=== PATIENT | female | born 1945 | race Caucasian/White ===

== ENCOUNTER → 2018-02-06 14:19 | Outpatient (CLI) | payer OTHER, SELFPAY ==
[2018-02-06 16:31] LABS: Alanine Aminotransferase 47 IU/L (9-52); Albumin 4.4 g/dL (3.5-5.0); Albumin Globulin Ratio 1.6 (1.0-2.8); Alkaline Phosphatase 82 U/L (38-126); Aspartate Aminotransferase 46 IU/L (14-36); BUN Creatinine Ratio 14.3 (6-22); Bilirubin Total 0.4 mg/dL (0.2-1.3); Blood Urea Nitrogen 10 mg/dL (7-17); Calcium 10.3 mg/dL (8.4-10.2); Carbon Dioxide 27 mmol/L (22-32); Chloride 94 mmol/L (98-107); Estimated Glomerular Filt Rate > 60.0 mL/min (>60); Globulin 2.7 g/dL (1.7-4.1); Glucose 81 mg/dL (80-110); HEMOLYSIS < 15 (0-50); Potassium 4.6 mmol/L (3.4-5.1); Sodium 133 mmol/L (137-145); Total Protein 7.1 g/dL (6.3-8.2)
== END ==
PROVIDERS: PCP Physician Assistant Medical; Visit Provider Physician Assistant Surgical
DX: Z01.818 Encounter for other preprocedural examination (principal)
CPT/HCPCS: 36415; 80053; 93005

== ENCOUNTER 2018-02-13 06:20 | Day surgery (SDC) | payer OTHER, SELFPAY ==
[2018-02-02 12:10] VITALS: BMI 21.2
[2018-02-13] VITALS (15 sets, daily range): BP systolic 90–144; BP diastolic 43–68; PULSE 53–83; RESP 15–20; TEMP 35.9–37.4; O2SAT 90–100; BMI 19.2
[2018-02-13] MEDS: LACTATED RINGERS 1,000 ML 42 ML IV ×2 (07:15→09:14)
--- NOTE | 2018-02-13 07:35 | PM.PREOP ---
Pre-operative Note Interval Note Pre-op Check: Yes History & Physical Reviewed by Physician and Yes Exam Performed Changes: No
[2018-02-13] MEDS: CLINDAMYCIN 900 MG/50 ML PIGGYBACK 50 MG IV (07:45)
[2018-02-13] MEDS: BUPIVACAINE LIPOSOME 266 MG/20 ML VIAL INJ (08:14)
[2018-02-13] MEDS: BUPIVACAINE 0.25% W/ EPI VIAL 50 ML INJ (08:15)
[2018-02-13] MEDS: VANCOMYCIN 1,000 MG VIAL 1000 MG TOP (08:15)
[2018-02-13] MEDS: THROMBIN (BOVINE) 5,000 UNIT VIAL 5000 UNIT TOP (08:15)
--- NOTE | 2018-02-13 08:23 | SUR.OPER ---
Prone on spine table, head in foam head support, padded chest and pelvic supports, gel pad at knees, lower legs supported by pillows; nipples, genitalia and toes free of pressure, arms secured on foam padded arm boards at <90 degrees abduction. Tape over blanket at thigh secured to table.
[2018-02-13] MEDS: SODIUM CHLORIDE 0.9% IRR (08:49)
[2018-02-13] MEDS: GENTAMICIN 160 MG IRR (08:49)
--- NOTE | 2018-02-13 08:53 | DI.RAD.S_ITS ---
PROCEDURE: XR LUMBAR SPINE 1V INDICATIONS: L5-S1 LAMINECTOMY TECHNIQUE: Single views of the lumbar spine were acquired. COMPARISON: [facility], , L-SPINE 2-3 VIEWS, 06/27/2017, 14:30. FINDINGS: Single spot fluoroscopic intraoperative image demonstrates lower lumbar spine posterior fixation with interbody cage grafts at L3-L4 L4-L5 and L5-S1. There is a surgical instrument projecting in the posterior paraspinal soft tissues with the tip seen at the L5-S1 level. Dictated by: Joshua Boggs M.D. on 02/13/2018 at 9:45 Approved by: Joshua Boggs M.D. on 02/13/2018 at 9:51
--- NOTE | 2018-02-13 10:14 | P.OP_ITS ---
Operative Date/Time/Diagnoses Date of procedure: 02/13/18 Time of procedure: 10:07 Pre-op diagnosis: Recurrent lumbar stenosis with radiculopathy History of lumbar fusion Post-op diagnosis: same Procedure & Clinicians Procedure: Revision right-sided L5-S1 diskectomy Use of microscope Removal of pedicle screw Same procedure as scheduled: No (We needed to remove the right L5 pedicle screw for full decompression.) Indications: A 72-year-old female with intractable right leg radiculopathy from stenosis. She had failed conservative management requested operative intervention. Risks and benefits of surgery discussed and appropriate consent obtained. Surgeon: Bari Webber Foxing Cutting Machine Operator: Kellie Rendon Anesthesia Type: General Operative Notes Findings: None Closure Type: primary Specimen(s): none sent Applied: catheter Estimated Blood Loss (mL): 30 Procedure in detail: Patient was brought to the operating room and intubated on the table. They were rolled over on the well-padded prone position on the Patrice table. A time-out was performed. Preoperative antibiotics were given. The back was prepped and draped in standard sterile fashion. Using fluoroscopy for localization, we used her previous right-sided incision and extended it to 5 cm in length.. We used Bovie to dissect through the scar down to the lumbodorsal fascia. We were able find the spinous process and start to dissect down a little bit. We had to do a careful revision exposure with care not to go into the canal. Had to scrape the scar tissue off. Finally were able to go out and find the L5 screw as our landmark. From there we continued our dissection exposing the remainder of the L5 lamina and part of the S1. We exposed both facets at L5-S1 and L4-5. At this point it was clear that the screw and tierney would be blocking some of her decompression. We exposed the tierney between the L4 and L5 screw and used a metal cutting bur to cut through it. We then used a pair of pliers to helicopter the L5 pedicle screw out. At this point we had good exposure. We then brought in the microscope. A revision right-sided laminectomy was performed at L5-S1 with a bur, curettes, and Kerrisons.. We carefully depressed the dura and reached across the midline to decompress the opposite side. We removed most of the facet at L5-S1 until the central canal was opened and we were down flush with the S1 pedicle. We did the same at L4-5 until we were flush with L5 pedicle. We cleared medially until we were well past the midline. We went up underneath part of S1. At the end of this everything was widely decompressed. We then started working out towards the neural foramen. We removed more the L5-S1 facet until we could trace the exiting nerve root completely out well past the pedicle laterally. We also undermined more at L4-5 to completely unearth the foramen. The neural foramen were cleared out. At the end, we could reach with the ball probe cephalad and caudally across the midline and to the foramen and everything was opened. The wound was copiously irrigated. The deep fascia was closed in layers. A drain was placed. Vancomycin powder was placed in the wound. The superficial and the skin were closed. Sterile dressing was placed. Patient was rolled over extubated brought to recovery room with no complications. Complications: none Condition: stable Disposition: PACU Plan for aftercare: Inpatient. Anticipate 1-2 days hospitalization time. Up with physical therapy.
[2018-02-13] MEDS: HYDROMORPHONE 2 MG INJ 0.5 MG IV ×2 (10:44→10:56)
[2018-02-13] MEDS: HYDROMORPHONE 2 MG TABLET PO (11:05)
[2018-02-13] MEDS: LACTATED RINGERS 1,000 ML 125 ML IV ×2 (12:14→21:16)
--- NOTE | 2018-02-13 12:38 | PC.NURSE ---
11:15 Post op patient arrived to room, oriented to room and call light. VSS. States pain is a 3-4 to right side leg, which she states as basically at her goal/chronic level. Dressing to back is CDI with hemovac in place, compressed and intact. Moving all extremities with good pulses. Soliz in place draining clear yellow urine. Call light within reach. Continue to monitor.
[2018-02-13] MEDS: INFLUENZA VACCINE 0.5 ML SYRINGE IM (13:21)
[2018-02-13] MEDS: KETOROLAC 30 MG/ML VIAL IV ×2 (14:15→21:05)
[2018-02-13] MEDS: HYDROMORPHONE 2 MG TABLET 4 MG PO ×3 (14:19→21:04)
--- NOTE | 2018-02-13 15:32 | PT.IIE ---
Current Diagnoses Spinal stenosis, lumbar region with neurogenic claudication (02/13/18) Strain of muscle, fascia and tendon of lower back, subsequent encounter (02/13/18) Arthrodesis status (02/13/18) Surgery Performed Operation Date: 02/13/18 07:45 Actual Procedures p Revision right L5-S1 Laminotomy with hardware removal - Bari Webber MD Surgical History (Last Reviewed 02/13/18 @ 18:36 by Nena Madrigal) S/P lumbar spinal fusion (Acute) History of tonsillectomy Status post appendectomy Status post surgery (07/01/15) Medical History (Last Updated 02/02/18 @ 12:16 by Merary Jamison RN) History of hysteroscopy (Acute) Hypertension (Acute) Lumbar stenosis with neurogenic claudication (Acute) Neutrophilia (Acute ~2009) Postmenopausal (Acute) Strain of lumbar region (Acute) Physical Therapy Inpatient Evaluation/Re-Eval M1 PT/OT-IP Prior Functional Status Start: 02/13/18 16:17 Freq: NEEDED Status: Active Protocol: Document 02/13/18 15:32 (Rec: 02/13/18 17:14 [id number]) Medical Review Prior Functional Status Medical History Reviewed Yes Diet/Fluid Consistency Regular Communication No deficits noted Mobility and Gait Pt independent with single- point cane for outside ambulation; occasional use indoors. Activities of Daily Living and IADL's States independent for all Social History Household Members none Living Arrangements House Number of Floors (Floors) One Floor Number of Stairs To Enter/Railing? 6 steps, B wide rails. Pt usually uses R side rail. Home Environment Standard Height Toilet Tub/Shower Home Equipment Four Wheel Walker Straight Cane Shower Seat without Backrest Grab Bars In Shower Employment Status Unknown Additional Social History Comment 25 year old grandson will be staying with her initially post op. Pt states having many friends and family availiable 03/12 to assist. M2 PT-IP Current Condition Start: 02/13/18 16:17 Freq: NEEDED Status: Active Protocol: Document 02/13/18 15:32 (Rec: 02/13/18 17:14 [id number]) Physical Therapy Current Condition Current Condition Evaluation Date 02/13/18 Treatment Diagnosis s/p Lumbar laminotomy/ discectomy; difficulty in walking Onset Date 02/13/18 Precautions Lumbar Precautions Log Roll No Twisting Limit Bending Lifting Restriction of 10 lbs Gait Belt above Incisional Area M3 PT-IP Subjective Start: 02/13/18 16:17 Freq: NEEDED Status: Active Protocol: Document 02/13/18 15:32 (Rec: 02/13/18 17:14 [id number]) Subjective Physical Therapy Visit Type Type Initial Evaluation Visit Start Time 15:32 Visit Stop Time 16:11 Total Visit Minutes 41 Number of RETURNING OFFICER Visits 0 Physical Therapy Visit Comments Patient Comments Pt states feeling very tired but is agreeable to PT today including log rolling, sitting and possible ambulation. Therapy Pain Assessment Pain When Pain Assessed At Rest Pain Present Pain Present Pain Reported Location Right Leg Intensity 5 Scale Used Numeric (1 - 10) back Intensity 5 Scale Used Numeric (1 - 10) Pain Management Techniques Timing of Activity with Medications M4 PT-IP Mobility and Gait Start: 02/13/18 16:17 Freq: NEEDED Status: Active Protocol: Document 02/13/18 15:32 (Rec: 02/13/18 17:14 [id number]) PT-Bed Mobility Assessment Rolling Type of Rolling Log Rolling Roll to Right Level of Assist Standby Assistance Contact Guard Assistance Supine to Sit Supine to Sit Contact Guard Assistance Sit to Supine Sit to Supine Contact Guard Assistance Scooting Scooting to Edge of Bed Standby Assistance Scooting Up and Down in Bed Standby Assistance PT-Transfer Assessment Sit to and From Stand Sit to and from Stand Contact Guard Assistance Minimal Assistance 1 Person Assistance Use of Upper Extremities Equipment Transfer Assistive Device Gait Belt Front Wheeled Walker Orthotic/Prosthetic Devices or Brace: No Comments Mobility Comments Verbal and tactile cues for hand placement into bed on ascent/descent from bed to FWW . A little dizzy with standing but resolves within seconds. Pt tolerated ~ 5 min of standing using FWW for support without further c/o dizziness. Gait Assessment Gait Gait Assistance Required: Contact Guard Assist Distance (Feet) 20 Able to Maintain Weight Bearing Status Yes During Gait Assistive Devices Assistive Device Gait Belt Front Wheeled Walker Orthotic/Prosthetic Devices or Brace: No Gait Deviations General Gait Pattern Decreased Stride Length Decreased Feet Clearance Flexed Trunk Wide Based Gait Factors Limiting Gait Function Factors Limiting Gait Function Decreased Activity Tolerance Decreased Sensation Decreased Strength Limited Range of Motion Pain Poor Balance Poor Safety Awareness PT-Balance Assessment Sitting Balance and Reactions Static Sitting Balance Ability Good Dynamic Sitting Balance Ability Good Standing Balance and Reactions Static Standing Balance Ability Fair Dynamic Standing Balance Ability Fair Device Used FWW M5 PT-IP Objective Assessments Start: 02/13/18 16:17 Freq: NEEDED Status: Active Protocol: Document 02/13/18 15:32 (Rec: 02/13/18 17:18 [id number]) Orientation Orientation/Cognition Level of Alertness Alert Orientation Name Birthday Situation Language Function Ability No Deficits Noted Safety Awareness Understands Safety Issues Memory Description No Deficits Noted Strength Lower Extremity Strength Assessment Right Impaired Hip R 4/5; L 5/5 Knee R 4/5; L 5/5 Ankle R 3+/5; L 5/5 Comments Strength Comments Pt has slight buckling of R LE with ambulation but is able to catch herself. Sensation Assessment Sensation Gross Sensation Right LE Impaired Sensation Description Numbness Comments Sensation Comments States R first 3 toes feeling numb. Muscle Tone Muscle Tone WNL Yes M6 PT-IP Treatment Start: 02/13/18 16:17 Freq: NEEDED Status: Active Protocol: Document 02/13/18 15:32 (Rec: 02/13/18 17:14 [id number]) Physical Therapy Treatment Exercises Exercises Ankle Pumps Education Education Provided Precautions Post-Op Packet Safety M7 PT-IP Assessment and Plan Start: 02/13/18 16:17 Freq: NEEDED Status: Active Protocol: Document 02/13/18 15:32 (Rec: 02/13/18 17:14 [id number]) PT Summary Assessment and Plan Potential Rehabilitation Potential Good Status of Condition at Evaluation Stable Summary Impairments Pain ROM Strength Balance Transfers Gait Activity Tolerance Progress Towards Goals Progressing Toward Goals Assessment Summary Pt was able to ambulate 20ft in room today with CGA and no LOB. Tolerated session well evidenced by stable vital signs post ambulation and no report of increased dizziness. Pt needs to demonstrate safe transfers in/out of chair and up/down 6 steps prior to d/c. Afterwhich we can recommend discharge to home with 24/ available assist and OP PT for skilled PT to gain functional strength and return patient to previous functional status. Goals Bed Mobility Goal Independent Transfer Goal Independent Standby Assistance Gait Goal Independent Standby Assistance Gait Distance 200 ft Other Goals Short term goal: During afternoon session on 02/14/18 pt will demonstrate safe ambulation distance of 200ft with SBA, FWW and no LOB to demonstrate safety for needed home ambulation. terminologist goal: Prior to discharge, pt will demonstrate ascent/descent of 6 stairs using 1 rail for support and CGA to demonstrate safety needed for 6 steps to enter home. Days to Meet Goals 2 Frequency of Treatment Frequency Of Treatment Twice a Day Treatment Plan Physical Therapy Treatment Plan Bed Mobility Training Transfer Training Gait Training Therapeutic Exercise Balance Retraining Hot or Cold Pack Other Recommendations and Next Treatment Continue with gait. Begin Focus stair training. Recommendations To Nursing Amount of Assist Needed 1 Person Assist Discharge Recommendations PT Discharge Recommendations Home with 24/ Assist Equipment Needed for Home Before FWW (patient states she knows Discharge where to borrow one)
[2018-02-13] MEDS: CLINDAMYCIN 600 MG/50 ML PIGGYBACK 50 MG IV ×2 (15:53→23:46)
--- NOTE | 2018-02-13 15:55 | PM.PNPO.1 ---
Subjective Date Patient Seen: 02/13/18 Time Patient Seen: 15:55 Interval history: back pain, some R leg pain still but different Exam Vital Signs (past 8 hours): - 02/13/18 10:25 02/13/18 10:30 02/13/18 10:35 Temperature 99.3 F Pulse Rate 83 83 78 Respiratory Rate 15 15 16 Blood Pressure 121/58 L 111/54 L 90/43 L Pulse Oximetry 100 99 97 02/13/18 10:49 02/13/18 11:00 02/13/18 11:15 Temperature 97.6 F 96.7 F L Pulse Rate 75 72 71 Respiratory Rate 15 16 16 Blood Pressure 113/57 L 100/48 L 106/54 L Pulse Oximetry 96 95 97 02/13/18 11:45 02/13/18 12:15 02/13/18 13:15 Temperature 97.2 F L 97.7 F 97.5 F L Pulse Rate 67 61 53 L Respiratory Rate 16 16 16 Blood Pressure 102/52 L 95/44 L 104/64 Pulse Oximetry 98 98 91 02/13/18 14:15 Temperature 97.5 F L Pulse Rate 56 L Respiratory Rate 16 Blood Pressure 129/59 L Pulse Oximetry 90 L Oxygen Delivery Method Nasal Cannula Oxygen Flow Rate 2 Const Orientation: alert and oriented x3 Back/Spine/Pelvis Other: 5/5 motor BLE except unchanged 4/5 R AT/EHL Assessment & Plan Post-op Postoperative Procedures Operation Date: 02/13/18 07:45 Actual Procedures Side Surgeon p Revision right L5-S1 Laminotomy with hardware removal Bari Webber MD stable. up with PT. anticipate dc tomorrow
[2018-02-13] MEDS: HYDROMORPHONE 1 MG INJ 0.5 MG IV ×2 (16:08→21:05)
[2018-02-13] MEDS: DOCUSATE 100 MG CAPSULE PO (21:04)
[2018-02-13] MEDS: SENNOSIDES 8.6 MG TABLET 17.2 MG PO (21:04)
[2018-02-13] MEDS: hydrOXYzine pamoate 25 MG CAPSULE PO (21:05)
--- NOTE | 2018-02-13 23:59 | PC.NURSE ---
Addendum entered by Eduarda Gee R.N. 02/14/18 05:57: Medicated with Dilaudid for 5/10 pain per patient request and ice pack provided for comfort. Original Note: Addendum entered by Eduarda Gee R.N. 02/14/18 03:51: States pain is slightly better at 6/10; medicated with Vistaril Original Note: Addendum entered by Eduarda Gee R.N. 02/14/18 02:37: Complains of 7/10 back pain radiating into right thigh and knee; medicated with Dilaudid. Original Note: Patient is alert and oriented. Breath sounds CTA with RA sat of 97%. HRR but bradycardic in 50's. Denies nausea. BT present and is passing flatus. Indwelling catheter is patent with clear yellow urine in bag. Is able to turn self. Dressing to back is CDI. Hemovac is intact and compressed. Has chronic weakness in right leg and tingling sensation in plantar surface/toes of right foot but unchanged since surgery; other CMS is intact. Wearing bilateral SCD's. Fall risk score is high so bed alarm activated. Currently states pain is 4/10 but tolerable and declines pain medication or ice pack.
[2018-02-14] MEDS: HYDROMORPHONE 2 MG TABLET 4 MG PO ×4 (02:35→12:26)
[2018-02-14] MEDS: hydrOXYzine pamoate 25 MG CAPSULE PO ×2 (03:49→12:26)
[2018-02-14 03:59] VITALS: BP 134/66; PULSE 58; RESP 20; TEMP 36.7; O2SAT 94
[2018-02-14 05:29] LABS: Hematocrit 29.2 % (36-46); Hemoglobin 10.1 g/dL (12.0-16.0)
[2018-02-14] MEDS: PANTOPRAZOLE 20 MG TABLET PO (05:47)
[2018-02-14 08:00] VITALS: BP 138/57; PULSE 59; RESP 16; TEMP 36.8; O2SAT 95
[2018-02-14] MEDS: DOCUSATE 100 MG CAPSULE PO (09:18)
[2018-02-14] MEDS: METOPROLOL ER 50 MG TABLET 100 MG PO (09:18)
[2018-02-14] MEDS: LISINOPRIL 20 MG TABLET 40 MG PO (09:18)
[2018-02-14] MEDS: CITALOPRAM 20 MG TABLET PO (09:19)
[2018-02-14] MEDS: SODIUM CHLORIDE 0.9% FLUSH 10 ML IV (09:22)
--- NOTE | 2018-02-14 09:43 | PT.IPTN ---
Current Diagnoses Spinal stenosis, lumbar region with neurogenic claudication (02/13/18) Strain of muscle, fascia and tendon of lower back, subsequent encounter (02/13/18) Arthrodesis status (02/13/18) Surgery Performed Operation Date: 02/13/18 07:45 Actual Procedures p Revision right L5-S1 Laminotomy with hardware removal - Bari Webber MD Physical Therapy Treatment Note M2 PT-IP Current Condition Start: 02/13/18 16:17 Freq: NEEDED Status: Active Protocol: Document 02/14/18 09:43 [facility] (Rec: 02/14/18 09:53 [facility] [id number]) Physical Therapy Current Condition Current Condition Evaluation Date 02/13/18 Treatment Diagnosis s/p Lumbar laminotomy/ discectomy; difficulty in walking Onset Date 02/13/18 Precautions Lumbar Precautions Log Roll No Twisting Limit Bending Lifting Restriction of 10 lbs Gait Belt above Incisional Area M3 PT-IP Subjective Start: 02/13/18 16:17 Freq: NEEDED Status: Active Protocol: Document 02/14/18 09:43 RCC (Rec: 02/14/18 09:53 [facility] [email or web address]) Subjective Physical Therapy Visit Type Type Treatment Note Visit Start Time 09:15 Visit Stop Time 09:43 Total Visit Minutes 28 Number of PRINTED CIRCUIT BOARD PCB DRAFTSMAN Visits 0 Physical Therapy Visit Comments Patient Comments pt wants to d/c today Therapy Pain Assessment Location back Intensity 5 Scale Used Numeric (1 - 10) M4 PT-IP Mobility and Gait Start: 02/13/18 16:17 Freq: NEEDED Status: Active Protocol: Document 02/14/18 09:43 [facility] (Rec: 02/14/18 09:53 [facility] [id number]) PT-Bed Mobility Assessment Rolling Type of Rolling Log Rolling Level of Assist Independent Supine to Sit Supine to Sit Independent Sit to Supine Sit to Supine Independent Scooting Scooting to Edge of Bed Independent PT-Transfer Assessment Sit to and From Stand Sit to and from Stand Independent Equipment Transfer Assistive Device Gait Belt Front Wheeled Walker Transfers Transfer Destination Bed Transfer Technique Stand Step Pivot Transfer Ability Level of Assist Standby Assistance Gait Assessment Gait Gait Assistance Required: Standby Assistance Distance (Feet) 200 Assistive Devices Assistive Device Gait Belt Front Wheeled Walker Gait Deviations General Gait Pattern Decreased Feet Clearance Factors Limiting Gait Function Factors Limiting Gait Function Decreased Activity Tolerance Decreased Strength Pain Stair Climbing Assessment Evaluation Level of Assist On Stairs Standby Assistance Devices Stair Climbing Assistive Devices Right Railing Technique/Endurance Stair Climbing Direction Ascend and Descend Stair Climbing Technique Step to Step Number of Steps Climbed 6 Query Text: PT-Balance Assessment Sitting Balance and Reactions Static Sitting Balance Ability Good Dynamic Sitting Balance Ability Good Standing Balance and Reactions Static Standing Balance Ability Good Dynamic Standing Balance Ability Good Device Used FWW M5 PT-IP Objective Assessments Start: 02/13/18 16:17 Freq: NEEDED Status: Active Protocol: Document 02/13/18 15:32 (Rec: 02/13/18 17:18 [id number]) Orientation Orientation/Cognition Level of Alertness Alert Orientation Name Birthday Situation Language Function Ability No Deficits Noted Safety Awareness Understands Safety Issues Memory Description No Deficits Noted Strength Lower Extremity Strength Assessment Right Impaired Hip R 4/5; L 5/5 Knee R 4/5; L 5/5 Ankle R 3+/5; L 5/5 Comments Strength Comments Pt has slight buckling of R LE with ambulation but is able to catch herself. Sensation Assessment Sensation Gross Sensation Right LE Impaired Sensation Description Numbness Comments Sensation Comments States R first 3 toes feeling numb. Muscle Tone Muscle Tone WNL Yes M6 PT-IP Treatment Start: 02/13/18 16:17 Freq: NEEDED Status: Active Protocol: Document 02/13/18 15:32 (Rec: 02/13/18 17:14 [id number]) Physical Therapy Treatment Exercises Exercises Ankle Pumps Education Education Provided Precautions Post-Op Packet Safety M7 PT-IP Assessment and Plan Start: 02/13/18 16:17 Freq: NEEDED Status: Active Protocol: Document 02/14/18 09:43 RCC (Rec: 02/14/18 09:53 [facility] [email or web address]) PT Summary Assessment and Plan Summary Progress Towards Goals Safe For Discharge Assessment Summary POD #1. Pt able to manage stairs, gait, and bed mobility without cuing and safely. Pt tolerated gait well, has access to a FWW from her mother upon return home. Pt is cleared to d/c when medically stable, demonstrates good safety awareness of log roll and precautions. All goals achieved. Goals Bed Mobility Goal Independent Transfer Goal Independent Standby Assistance Gait Goal Independent Standby Assistance Gait Distance 200 ft Other Goals Short term goal: During afternoon session on 02/14/18 pt will demonstrate safe ambulation distance of 200ft with SBA, FWW and no LOB to demonstrate safety for needed home ambulation. local intermodal truck driver goal: Prior to discharge, pt will demonstrate ascent/descent of 6 stairs using 1 rail for support and CGA to demonstrate safety needed for 6 steps to enter home. Days to Meet Goals 2 Frequency of Treatment Frequency Of Treatment Discharge Recommendations To Nursing Amount of Assist Needed 1 Person Assist Discharge Recommendations PT Discharge Recommendations Home with Assistance Equipment Needed for Home Before has access to a FWW @ home Discharge
--- NOTE | 2018-02-14 10:32 | P.DS_ITS ---
History of Present Illness Date Patient Seen: 02/14/18 Time Patient Seen: 10:31 Chief complaint: [id number] REVISION L5-S1 LAMINECTOMY ON RIGHT Narrative: A 72-year-old female with intractable right leg radiculopathy from stenosis. She had failed conservative management requested operative intervention. Risks and benefits of surgery discussed and appropriate consent obtained. Discharge Providers Primary care physician: Zakiya Crooks PA-C Consults: 02/13/18 11:41 Consult to Occupational Therapy Evaluate & Treat Comment: Physician Instructions: Evaluate and treat Consult to Physical Therapy Evaluate & Treat Comment: Physician Instructions: Evaluate and Treat Discharge provider: Kellie Rendon PA-C Discharge Date: 02/14/18 Summary Discharge Diagnosis: s/p revision discectomy Hospital Course: Lexis was admitted for diskectomy with Dr. shafer, and she consented to procedure. On postop day 1. She is feeling well and wanted to go home. Drain and Soliz catheter removed prior to discharge. She was mobilizing with physical therapy in the calix. She knows her precautions of no excessive bending, lifting, or twisting. Calves were soft, compressible, nontender bilaterally. Pain was well controlled with Dilaudid and Vistaril. Status at Discharge Functional status at discharge: uses cane/walker Exam Vital Signs (past 8 hours): - 02/14/18 03:59 Temperature 98.0 F Pulse Rate 58 L Respiratory Rate 20 Blood Pressure 134/66 Pulse Oximetry 94 Oxygen Delivery Method Room Air Oxygen Flow Rate 0 Narrative Exam Narrative: Patient lying in bed in no acute distress. She is alert oriented x3. Dressing on back changed cover site prior to discharge. Drain and catheter removed prior to discharge. Calves are soft, compressible, nontender bilaterally. Sensation intact light touch throughout bilateral lower extremities. Pulses are symmetrical. Her pain is well controlled with Dilaudid and Vistaril. Denies chest pain or shortness of breath. Objective Labs Result Diagrams: 02/14/18 05:00 Labs: Laboratory Results - last 24 hr 02/14/18 05:00 Hgb 10.1 L Hct 29.2 L Discharge Plan Discharge Plan Patient Disposition: Home Discharge comment: DC home today with coversite dressing Discharge Med Rec/Prescriptions Prescriptions: New hydromorphone 2 mg Tablet See Label Instructions .ROUTE .COMPLEX PRN (Reason: Pain, Severe (7-10)) Qty : 60 RF: 0 hydroxyzine pamoate 25 mg Capsule 25 mg PO Q4HR PRN (Reason: spasms) Qty: 30 RF: 0 Continue omeprazole 20 MG capsule,delayed release(DR/EC) 20 mg PO QDAY Qty: 0 RF: 0 lisinopril 40 mg Tablet 40 mg PO DAILY RF: 0 metoprolol succinate 100 mg Tablet Extended Release 24 Hr 100 mg PO DAILY RF: 0 hydromorphone [Dilaudid] 2 MG tablet 2 - 4 mg PO Q3HP PRN (Reason: Pain (Scale Score 4-6)) RF: 0 citalopram 20 mg Tablet 20 mg PO DAILY RF: 0 Follow up/Referrals: Bari Shafer MD [Physician] - (Follow up in 10-14 days ) Discharge Orders: Discharge (Order); Ordered 02/14/18 Ordered By: Kellie Rendon Provider Discharge Instructions Diet: Diet as Tolerated Activity: No excessive bending, lifting, or twisting. Cold/Heat Therapy: as needed Skin/Wound/Dressing Care Report to your healthcare provider any signs of infection, such as:: chills, fever and increased pain Dressing: Coversite dressing Visit Report/Discharge Packet Stand Alone Forms: Surgery Discharge Discharge Data Primary Care Provider: Zakiya Crooks Attending Provider: Bari Shafer
--- NOTE | 2018-02-14 10:40 | OT.IP.TRT ---
Current Diagnoses Spinal stenosis, lumbar region with neurogenic claudication (02/13/18) Strain of muscle, fascia and tendon of lower back, subsequent encounter (02/13/18) Arthrodesis status (02/13/18) Surgery Performed Operation Date: 02/13/18 07:45 Actual Procedures p Revision right L5-S1 Laminotomy with hardware removal - Bari Webber MD Occupational Therapy Treatment Note M3 OT- IP Subjective and Pain Start: 02/14/18 10:37 Freq: Status: Active Protocol: Document 02/14/18 10:37 [facility] (Rec: 02/14/18 10:40 [facility] [id number]) OT- Subjective Occupational Therapy Visit Type Type Administrative Note Notes Pt states has had prior back surgery and here for revision, has good understanding for all OT needs, AED, and to have good support at home. Therefore pt states not needing OT eval.
--- NOTE | 2018-02-14 16:54 | PC.NURSE ---
Discharge: Pt feels ready for d/c home. Has been seen by PT and received final instructions. Hemovac d/c intact and dressing applied. Dressing to lower back changed to a cover site and pt was given wound care instructions. Incision is sutured and and intact, minimal redness, sm bruise present. Has a tiny spot mid incision which has few (3) drops of bloody fluid. Soliz out and has voided x1. Pt's mother has already received rx for home pain meds and had them filled. Priority load pass given. Reviewed d/c instruction sheets for lami and constipation. Questions answered. Pt d/c home via auto. She expressed no concerns at time of discharge.
== END 2018-02-14 13:10 | disposition home or self-care (01) ==
LOC: OR 06:22 → AC 11:34
PROVIDERS: Family Provider Physician Assistant Medical; PCP Physician Assistant Medical; Visit Provider Orthopaedic Surgery
PROC: (CPT 63047; principal; 2018-02-13 07:45)
DX: M48.062 Spinal stenosis, lumbar region with neurogenic claudication (principal); M54.17 Radiculopathy, lumbosacral region; S39.012D Strain of muscle, fascia and tendon of lower back, subsequent encounter; G89.4 Chronic pain syndrome; Z98.1 Arthrodesis status; Z23 Encounter for immunization
CPT/HCPCS: 63047; 63048; 20680; 36415; 72020; 76001; 85014; 85018; 90471; 90656; 97116; 97161; 97530; C9290; J1100; J1170; J1885; J2405; J2704; J3010; Q2038

== ENCOUNTER → 2018-08-08 09:44 | Outpatient (CLI) | payer OTHER, SELFPAY ==
--- NOTE | 2018-08-08 14:37 | DI.MRI.S_ITS ---
PROCEDURE: MR LUMBAR SPINE WO CON INDICATIONS: LUMBAGO WITH SCIATICA TECHNIQUE: Noncontrast sagittal T1 spin echo and T2 fast echo, sagittal STIR, axial T1 and T2 fast spin echo through the lumbar spine. In cases with scoliosis, additional coronal T2 fast spin echo may be performed. COMPARISON: [facility], , L-SPINE WITHOUT CONTRAST, 03/28/2011, 9:52. FINDINGS: Image quality: Excellent. Alignment and Curvature: There is mild to moderate dextroscoliosis of lumbar spine centered at L2 level. Patient is status post transpedicular fusion at L2-L5 levels. No spondylolisthesis. Bone Marrow: Susceptibility artifact from fusion hardware is seen. No gross marrow edema. No gross hardware loosening or failure. There is near complete bony union at L4-5 level and partial bone union at L2-3 and L3-4 levels. Spinal Cord: Conus medullaris terminates at the L1-2 level. Visualized cord demonstrates normal signal and size. Paraspinous Soft Tissues: No paravertebral masses. L1-L2: Bilateral facet arthrosis and diffuse disc bulge is seen. There is mild central canal stenosis, no significant neuroforaminal narrowing. L2-L3: Bilateral facet arthrosis is seen. There is no significant central canal stenosis. Mild to moderate left-sided neuroforaminal narrowing is noted. L3-L4: Bilateral facet arthrosis is seen with mild central canal stenosis and bilateral neuroforaminal narrowing. L4-L5: Bilateral facet arthrosis is seen with mild central canal stenosis. Moderate bilateral neuroforaminal narrowing is noted. L5-S1: Broad-based disc bulge and bilateral facet arthrosis is seen. No significant central canal stenosis. Moderate bilateral neuroforamina narrowing is seen.. IMPRESSION: #1. Prior transpedicular fusion at L2-L5 levels. No acute compression fracture or spondylolisthesis. No gross marrow edema. No gross hardware complication. #2. Mild to moderate dextroscoliosis of thoracolumbar spine centered at L2 level. #3. Bilateral facet arthrosis and degenerative disc bulge throughout lumbar spine with mild to moderate central canal stenosis and bilateral neuroforaminal narrowing as described above. Dictated by: Rony Milian M.D. on 08/08/2018 at 15:36 Approved by: Rony Milian M.D. on 08/08/2018 at 15:41
== END ==
PROVIDERS: Family Provider Orthopaedic Surgery; PCP Physician Assistant Medical; Visit Provider Physician Assistant Medical
DX: M51.16 Intervertebral disc disorders with radiculopathy, lumbar region (principal); M51.17 Intervertebral disc disorders with radiculopathy, lumbosacral region; M48.061 Spinal stenosis, lumbar region without neurogenic claudication; M48.07 Spinal stenosis, lumbosacral region; M47.26 Other spondylosis with radiculopathy, lumbar region; M47.27 Other spondylosis with radiculopathy, lumbosacral region; M41.85 Other forms of scoliosis, thoracolumbar region; Z98.1 Arthrodesis status
CPT/HCPCS: 72148

== ENCOUNTER → 2018-09-02 10:11 | Outpatient (CLI) | payer OTHER, SELFPAY ==
--- NOTE | 2018-09-02 | DI.CT.S_ITS ---
PROCEDURE: CT LUMBAR SPINE WO CON INDICATIONS: Right leg radicular pain post lumbar surgery February 2018 TECHNIQUE: Noncontrast 3 mm thick sections acquired from the T12 level to the sacrum. Sagittal and coronal reformats were constructed. For radiation dose reduction, the following was used: automated exposure control. COMPARISON: [facility], CR, XR LUMBAR SPINE 1V, 02/13/2018, 8:38. [facility], CR, L-SPINE 2-3 VIEWS, 06/27/2017, 14:30. [facility], MR, L-SPINE W&WO CONTRAST, 03/27/2017, 13:29. [facility], MR, MR LUMBAR SPINE WO CON, 08/08/2018, 9:58. [facility], CR, XR LUMBAR SPINE 2 OR 3 VIEWS, 08/08/2018, 14:17. FINDINGS: Image quality: Excellent. Bones: There is moderate to severe levoscoliosis with apex at L3. There is otherwise normal bony alignment. No acute vertebral body compression fractures. No suspicious lytic or blastic bony lesions. No pars defects. There are extensive postsurgical changes in lumbar spine with spinal fusion from L1-S1. The left L3 pedicular screw traverses through the L3 vertebral body anteriorly. There is lucency in the fusion screws of L5 and S1. T12-L1: Severe loss of disc height and vacuum phenomenon. There is posterior disc bulge disc osteophyte complex. The central canal is narrowed. No significant foraminal stenosis. No definitive nerve root impingement. L1-L2: Surgically fused with intravertebral disc prosthesis. No central canal stenosis. [id number] left foraminal stenosis. L2-L3: Surgically fused with intravertebral disc prosthesis. No central canal stenosis. [id number] foraminal stenosis bilaterally. L3-L4: Surgically fused with intravertebral disc prosthesis. No central canal stenosis. No foraminal stenosis. L4-L5: Surgically fused with intravertebral disc prosthesis. No central canal stenosis. No foraminal stenosis. L5-S1: Surgically fused with intravertebral disc prosthesis. No central canal stenosis. Mild bilateral foraminal stenosis. Soft tissues: No retroperitoneal masses or hematomas. Visualized aorta is normal in caliber. IMPRESSION: 1. Multilevel degenerative and postsurgical changes in lumbar spine as described. 2. The left L3 pedicular screw traverses through the anterior L3 vertebral body. 3. There is lucency in the fusion screws of L5-S1 concerning for loosening. 4. No central canal stenosis. 5. Multilevel foraminal stenosis as described. Dictated by: Keena Garcia M.D. on 09/02/2018 at 12:24 Approved by: Keena Garcia M.D. on 09/02/2018 at 18:12
--- NOTE | 2018-09-02 | DI.NM.S_ITS ---
PROCEDURE: NM BONE SPECT RADIOPHARMACEUTICAL: 20.5 mCi Tc-99m MDP IV. INDICATIONS: Strain of muscle, fascia and tendon of lower back TECHNIQUE: Delayed bone scintigrams were obtained of the region of interest 3-4 hours after intravenous administration of Tc-99m MDP. Additional tomographic (SPECT) imaging was performed and displayed in axial, coronal, and sagittal planes. COMPARISON: [facility], MR, MR LUMBAR SPINE WO CON, 08/08/2018, 9:58. [facility], CR, XR LUMBAR SPINE 2 OR 3 VIEWS, 08/08/2018, 14:17. [facility], CR, L-SPINE 2-3 VIEWS, 06/27/2017, 14:30. [facility], CR, L-SPINE 2-3 VIEWS, 12/03/2011, 16:16. [facility], CR, L-SPINE 2-3 VIEWS, 02/23/2009, 12:44. [facility], CT, CT LUMBAR SPINE WO CON, 09/02/2018, 10:21. FINDINGS: There is moderate levoscoliosis. There are foci of increased activity in lumbar spine, most pronounced at L1-L2 and L5-S1, correlating with severe degenerative disc disease and facet disease superimposed on postsurgical changes as seen on radiographs, CT and MRI. IMPRESSION: Increased uptake in lumbar spine correlates with other imaging findings of severe degenerative disc and facet disease superimposed on post surgical changes. Dictated by: Keena Garcia M.D. on 09/02/2018 at 15:51 Approved by: Keena Garcia M.D. on 09/02/2018 at 18:23
== END ==
PROVIDERS: Family Provider Orthopaedic Surgery; PCP Physician Assistant Medical; Visit Provider Orthopaedic Surgery
DX: S39.012D Strain of muscle, fascia and tendon of lower back, subsequent encounter (principal); M79.604 Pain in right leg; M51.15 Intervertebral disc disorders with radiculopathy, thoracolumbar region; M51.16 Intervertebral disc disorders with radiculopathy, lumbar region; M51.17 Intervertebral disc disorders with radiculopathy, lumbosacral region; M48.061 Spinal stenosis, lumbar region without neurogenic claudication; M48.07 Spinal stenosis, lumbosacral region; Z98.1 Arthrodesis status
CPT/HCPCS: 72131; 78320; A9503

== ENCOUNTER 2018-10-07 06:02 | Inpatient (IN) | payer OTHER, SELFPAY ==
[2018-09-24 08:44] VITALS: BMI 26.6
[2018-10-07] VITALS (22 sets, daily range): BP systolic 103–173; BP diastolic 45–74; PULSE 59–82; RESP 6–22; TEMP 36–36.8; O2SAT 92–99; BMI 28.3
--- NOTE | 2018-10-07 | DI.RAD.S_ITS ---
PROCEDURE: XR LUMBAR SPINE 2-3V INDICATIONS: L5-S1 TLIF TECHNIQUE: 2 views of the lumbar spine were acquired. COMPARISON: [facility], DIXIE, XR LUMBAR SPINE 1V, 02/13/2018, 8:38. [facility], DIXIE, L-SPINE 2-3 VIEWS, 06/27/2017, 14:30. FINDINGS: Bones: Previously present effusion device is seen along the lower cervical spine, with its inferior extent now at the L4 level. A previously present L4-L5 disc prosthesis can be seen. The left-sided upper fixation device has been removed. A new bilateral L5-S1 fixation device has been placed, with transverse screws and vertical fixation rods in expected position bilaterally. A previously present L5-S1 fixation device at the interbody disc region has not changed. Soft tissues: Overlying bowel gas pattern is normal. No suspicious soft tissue calcifications. IMPRESSION: Partial revision of a upper fixation device with removal of the left-sided component, placement of new bilateral L5-S1 fixation device dorsally. Interbody disc prosthesis and fixation screws/jaelyn appear stable over time. Dictated by: Fco Shanks M.D. on 10/07/2018 at 13:54 Approved by: Fco Shanks M.D. on 10/07/2018 at 13:57
[2018-10-07] MEDS: LACTATED RINGERS 1,000 ML 42 ML IV (07:15)
--- NOTE | 2018-10-07 07:25 | PM.PREOP ---
Pre-operative Note Interval Note History & Physical reviewed/Exam performed by Physician: Yes Changes to H&P: No
[2018-10-07] MEDS: CEFAZOLIN 2 GM/100 ML FROZ.PIGGY IV ×3 (07:43→23:46)
--- NOTE | 2018-10-07 07:43 | SUR.PREOP ---
blood sugar [address] wise
[2018-10-07] MEDS: BUPIVACAINE 0.25% W/ EPI 30 ML VIAL 60 ML INJ (08:48)
[2018-10-07] MEDS: BUPIVACAINE LIPOSOME 266 MG/20 ML VIAL INJ (08:49)
[2018-10-07] MEDS: SODIUM CHLORIDE 0.9% 1,000 ML, GENTAMICIN 80 MG IRR (08:49)
[2018-10-07] MEDS: VANCOMYCIN 1,000 MG VIAL 1000 MG TOP (08:53)
[2018-10-07] MEDS: fentaNYL 100 MCG/2 ML INJ 50 MCG IV (10:14)
--- NOTE | 2018-10-07 10:17 | P.OP_ITS ---
Operative Date/Time/Diagnoses Date of procedure: 10/07/18 Time of procedure: 10:09 Pre-op diagnosis: L5-S1 lumbar fusion pseudoarthrosis Post-op diagnosis: same Procedure & Clinicians Procedure: Removal of segmental lumbar instrumentation L5-S1 posterior fusion L5, S1 screws Iliac crest bone graft Same procedure as scheduled: Yes Indications: 73-year-old female with a history of a previous lumbar fusion. Her L5-S1 in stand-alone anterior fusion had never solidly fused it was felt that she would benefit from posterior instrumentation fusion. We would have to remove her old instrumentation to put the new ones in. Risks and benefits of surgery were discussed and appropriate consent obtained. Surgeon: Bari Webber Senior Contract Specialist: Kellie Rendon Anesthesia Type: General Operative Notes Findings: None Closure Type: primary Specimen(s): none sent Prosthetic devices, grafts, tissues, transplants, or devices: NuVasive 7.5mm MAS Reline screws Applied: catheter Estimated Blood Loss (mL): 15 Blood products transfused: none Procedure in detail: The patient is brought to the operating room and intubated on the stretcher. She was rolled over to the well-padded prone position on the Patrice table. The back was prepped and draped in standard sterile fashion. Time-out was performed. Preoperative antibiotics were given. We used fluoroscopy for localization and made a 8 cm incision over the left- sided pedicle screws. We used Bovie to come down to and split the fascia. We exposed the screws and cleared them off with Bovie. I realize that with our exposure to be able to cut the tierney above L4 we would only have to go 1 screw higher to remove them all and instead exposed all the way up to the L2 screw. The old Expedium screws were removed. We then expanded our muscle-splitting approach at L5 and S1 to expose the transverse process and ala as well as the facets. These were decorticated with a bur. We then percutaneously placed Jamshidi needles down the left pedicles of L5 and S1 using fluoroscopy and neural monitoring. As her initial screw had gone out through the anterior vertebral body I wanted to start more lateral and used a different screw hole at L5. We then tapped over the guidewires and then placed our MAS Reline screws. We then went over to the right-hand side. Again we used fluoroscopy for localization and made a 5 cm longitudinal incision. We used Bovie to come down to and split the fascia. We percutaneously placed Jamshidi needles down the right pedicles of L5 and S1. We then used our guidewires as landmarks and cleared out the posterolateral gutter with the sacral ala and the transverse process of L5. These were decorticated with a bur. Care was taken not to disturb the soft tissue over her previous revision laminotomies at this level. The guidewires were tapped and then the appropriate length screws were placed. The S1 screw on the right was actually not cannulated but we placed it with direct visualization and fluoroscopy. We then placed a tierney on the right-hand side and distracted across the screws and then locked down the tierney. This was an attempt to try to restore some of the collapse but she was still bent to the right-hand side above this with her previous L2-5 fusion. The tierney was then placed and locked down on the left-hand side as well. The wounds were irrigated. A small stab incision was made over the right PSIS and a Jamshidi needle was used to aspirate bone marrow. This was mixed with Osteocel bone graft and placed out the posterolateral gutters at L5-S1 for the posterolateral fusion. The fascia was closed. Vancomycin powder was placed in the wounds. The superficial and skin were closed. Local anesthetic was placed into the wounds. Sterile dressing was placed. She was then rolled over extubated and brought to the recovery room with no complications. Complications: none Condition: stable Disposition: PACU Plan for aftercare: Inpatient. Mobilize with therapy.
[2018-10-07] MEDS: HYDROMORPHONE 2 MG INJ 0.5 MG IV ×2 (10:18→10:31)
[2018-10-07] MEDS: HYDROMORPHONE 2 MG TABLET PO ×2 (10:35→12:12)
--- NOTE | 2018-10-07 10:55 | SUR.PHASEI ---
REPORT CALLED TO EBONY, STUDENT RN ON ACUTE CARE FLOOR. PT IN STABLE CONDITION, VSS. PT ALERT AND TALKING TO RN AND APPEARS COMFORTABLE AT THIS TIME. PT BEING TRANSFERRED TO ACUTE CARE FLOOR AT THIS TIME.
--- NOTE | 2018-10-07 11:13 | SUR.PHASEI ---
PT TRANSFERRED TO ACUTE CARE FLOOR IN STABLE CONDITION. PT ALERT AND TALKING TO RN DURING TRANSPORT. BEDSIDE REPORT GIVEN TO MARCUS GARCIA UPON ARRIVAL TO ROOM. NO CHANGE IN PT CONDITION UPON ARRIVAL TO PT ROOM. TRANSFERRED CARE OF PT TO MARCUS GARCIA AT THAT TIME.
[2018-10-07] MEDS: LACTATED RINGERS 1,000 ML 125 ML IV (11:25)
--- NOTE | 2018-10-07 11:41 | PC.NURSE ---
Admit done with Student RN, Pt is comfortable with LR infusing at 125cc/hr. PTs dressing to lower back is cdi s any drainage. She does complain of tingling and numbness in her r.extremity and present before surgery. She is visiting with her son and mother. Comfortable at this time.
--- NOTE | 2018-10-07 11:41 | PC.NURSE ---
Admitted to the floor at about 1110. vitals stable, continues to need o2 at 1L to keep o2 sats above 90% per md order. A+ox4 to baseline. Pain well controlled. Dsg to lower back incision c,d,i. Tingling to right leg radiating down to foot which was present prior to surgery. Soliz in place with clear yellow output. Lungs clear to auscultation and instructed on use of incentive spirometer. 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 Pleasant, calm and cooperative. Pedal pulses palpable bilaterally +2.
[2018-10-07] MEDS: HYDROMORPHONE 2 MG TABLET 4 MG PO ×4 (13:36→22:31)
--- NOTE | 2018-10-07 15:52 | PT.IIE ---
Current Diagnoses Spinal stenosis, lumbar region with neurogenic claudication (10/07/18) Pseudarthrosis after fusion or arthrodesis (10/07/18) Strain of muscle, fascia and tendon of lower back, subsequent encounter (10/07/18) Arthrodesis status (10/07/18) Surgery Performed Operation Date: 10/07/18 07:45 Actual Procedures s Removal,spinal instru,posterior non-segmental, AND REVISION INSTRUMENTED POST FUSION - Bari Webber MD p L5-S1 INSTRUMENTED FUSION WITH BONE GRAFT - Bari Webber MD Surgical History (Last Updated 09/24/18 @ 08:48 by Disha Membreno RN) Hx of lumbar discectomy (Acute 02/13/18) S/P lumbar spinal fusion (Acute) History of tonsillectomy Status post appendectomy Status post surgery (07/01/15) Medical History (Last Updated 09/30/18 @ 08:09 by Disha Membreno RN) Toe infection (Acute ~2017) History of hysteroscopy (Acute) Hypertension (Acute) Lumbar stenosis with neurogenic claudication (Acute) Neutrophilia (Acute ~2009) Postmenopausal (Acute) Strain of lumbar region (Acute) Physical Therapy Inpatient Evaluation/Re-Eval M1 PT/OT-IP Prior Functional Status Start: 10/07/18 17:40 Freq: NEEDED Status: Active Protocol: Document 10/07/18 15:52 AB (Rec: 10/07/18 17:50 AB [id number]) Medical Review Prior Functional Status Medical History Reviewed Yes Communication able to make needs known Mobility and Gait pt stated that she is iindependent with all mobilities and ambulation using SPC Social History Household Members none Living Arrangements House Number of Floors (Floors) One Floor Number of Stairs To Enter/Railing? 6 steps with bilateral wide rails and can hold on to one rail at a time Home Environment Standard Height Toilet Tub/Shower Home Equipment Four Wheel Walker Straight Cane Grab Bars In Shower Additional Social History Comment pt stated that her son will be staying with her to assist her at home Pt stated that she has access to a FWW if needed M2 PT-IP Current Condition Start: 10/07/18 17:40 Freq: NEEDED Status: Active Protocol: Document 10/07/18 15:52 AB (Rec: 10/07/18 17:50 AB [id number]) Physical Therapy Current Condition Current Condition Evaluation Date 10/07/18 Treatment Diagnosis s/p L5S1 fusion; difficulty in walking Onset Date 10/07/18 Precautions Lumbar Precautions Log Roll No Twisting Limit Bending Lifting Restriction of 10 lbs Gait Belt above Incisional Area M3 PT-IP Subjective Start: 10/07/18 17:40 Freq: NEEDED Status: Active Protocol: Document 10/07/18 15:52 AB (Rec: 10/07/18 17:50 AB [id number]) Subjective Physical Therapy Visit Type Type Initial Evaluation Visit Start Time 15:52 Visit Stop Time 16:30 Total Visit Minutes 38 Number of DELIVERY HELPER Visits 0 Physical Therapy Visit Comments Patient Comments pt agreeable to do PT Therapy Pain Assessment Pain When Pain Assessed At Rest Pain Present Pain Present Pain Reported Location back Intensity 7 Scale Used Numeric (1 - 10) Pain Management Techniques Apply Cold Re-positioning Timing of Activity with Medications M4 PT-IP Mobility and Gait Start: 10/07/18 17:40 Freq: NEEDED Status: Active Protocol: Document 10/07/18 15:52 AB (Rec: 10/07/18 17:50 AB [id number]) PT-Bed Mobility Assessment Rolling Type of Rolling Log Rolling Level of Assist Standby Assistance Supine to Sit Supine to Sit Standby Assistance PT-Transfer Assessment Sit to and From Stand Sit to and from Stand Contact Guard Assistance 1 Person Assistance Use of Upper Extremities Equipment Transfer Assistive Device Gait Belt Front Wheeled Walker Orthotic/Prosthetic Devices or Brace: No Transfers Transfer Destination Chair Transfer Technique Stand Step Pivot Transfer Ability Level of Assist Contact Guard Assistance Gait Assessment Gait Gait Assistance Required: Contact Guard Assist Distance (Feet) 50 Able to Maintain Weight Bearing Status Yes During Gait Assistive Devices Assistive Device Gait Belt Front Wheeled Walker Orthotic/Prosthetic Devices or Brace: No Gait Deviations General Gait Pattern Antalgic Decreased Stride Length Decreased Feet Clearance Factors Limiting Gait Function Factors Limiting Gait Function Decreased Activity Tolerance Decreased Sensation Decreased Strength Limited Range of Motion Pain Poor Balance Poor Safety Awareness PT-Balance Assessment Sitting Balance and Reactions Static Sitting Balance Ability Good Dynamic Sitting Balance Ability Good Standing Balance and Reactions Static Standing Balance Ability Fair Dynamic Standing Balance Ability Fair Device Used FWW M5 PT-IP Objective Assessments Start: 10/07/18 17:40 Freq: NEEDED Status: Active Protocol: Document 10/07/18 15:52 AB (Rec: 10/07/18 17:50 AB [id number]) Orientation Orientation/Cognition Level of Alertness Alert Orientation Name Age Birthday Month Date Year Day of Week Place Situation Language Function Ability No Deficits Noted Safety Awareness Understands Safety Issues Memory Description No Deficits Noted Gross Range of Motion Lower Extremity ROM Assessment Within Functional Limits Strength Lower Extremity Strength Assessment Bilaterally Impaired Hip 4-/5 Knee 4-/5 Coordination Assessment Gross Coordination Gross Coordination WNL Sensation Assessment Sensation Gross Sensation Right LE Impaired Sensation Description Numbness Comments Sensation Comments c/o chronic RLE decrease in sensation Muscle Tone Muscle Tone WNL Yes M6 PT-IP Treatment Start: 10/07/18 17:40 Freq: NEEDED Status: Active Protocol: Document 10/07/18 15:52 AB (Rec: 10/07/18 17:50 AB [id number]) Physical Therapy Treatment Education Education Provided Precautions Weight Bearing Status Post-Op Packet Safety M7 PT-IP Assessment and Plan Start: 10/07/18 17:40 Freq: NEEDED Status: Active Protocol: Document 10/07/18 15:52 AB (Rec: 10/07/18 17:50 AB [id number]) PT Summary Assessment and Plan Potential Rehabilitation Potential Good Status of Condition at Evaluation Stable Summary Impairments Pain ROM Strength Balance Coordination Sensation Bed Mobility Transfers Gait Activity Tolerance Assessment Summary pt requiring CGA with mobility and plans to go home with her son to assist her. stair climbing training will be conducted prior to d/c. Goals Bed Mobility Goal Independent Transfer Goal Independent Front Wheeled Walker Four Wheeled Walker Gait Goal Independent Front Wheel Walker Four Wheel Walker Gait Distance 200 Other Goals up/down 6 steps R rail ascending SBA Days to Meet Goals 5 Frequency of Treatment Frequency Of Treatment Twice a Day Treatment Plan Physical Therapy Treatment Plan Bed Mobility Training Transfer Training Gait Training Therapeutic Exercise Balance Retraining Post Op Education Discharge Planning Hot or Cold Pack Neuromuscular Re-ed Coordination Retraining Manual Therapy Other Recommendations and Next Treatment ambulation using 4WW if Focus appropriate, stair climbing training, caregiver training Recommendations To Nursing Amount of Assist Needed 1 Person Assist Discharge Recommendations PT Discharge Recommendations Home with Assistance Equipment Needed for Home Before FWW if not safe with 4WW Discharge
[2018-10-07] MEDS: hydrOXYzine pamoate 25 MG CAPSULE PO ×2 (19:08→22:31)
[2018-10-07] MEDS: SENNOSIDES 8.6 MG TABLET 17.2 MG PO (20:33)
[2018-10-07] MEDS: DOCUSATE 100 MG CAPSULE PO (20:33)
[2018-10-08] VITALS (7 sets, daily range): BP systolic 132–152; BP diastolic 58–80; PULSE 63–70; RESP 15–20; TEMP 36.1–37.1; O2SAT 92–95
[2018-10-08] MEDS: hydrOXYzine pamoate 25 MG CAPSULE PO ×2 (02:11→23:59)
[2018-10-08] MEDS: HYDROMORPHONE 2 MG TABLET 4 MG PO ×7 (02:11→22:05)
[2018-10-08 05:43] LABS: Hematocrit 30.2 % (36-46); Hemoglobin 9.6 g/dL (12.0-16.0)
[2018-10-08] MEDS: PANTOPRAZOLE 20 MG TABLET PO (06:05)
--- NOTE | 2018-10-08 08:13 | PM.PNPO.1 ---
Subjective Date Patient Seen: 10/08/18 Time Patient Seen: 08:13 Interval history: She is doing very well. Incisional back pain is manageable. She has been up and walking around with assistance and her right leg is actually feeling better than preoperative Exam Vital Signs (past 8 hours): - 10/08/18 05:33 10/08/18 07:51 Temperature 98.3 F 98.6 F Pulse Rate 70 69 Respiratory Rate 16 15 Blood Pressure 135/72 133/58 L Pulse Oximetry 93 94 Oxygen Delivery Method Room Air Oxygen Flow Rate 1 Const Orientation: alert and oriented x3 Back/Spine/Pelvis Other: Mild drainage. 5/5 motor both lower extremities except for 5-/5 right AT/EHL Objective Labs Result Diagrams: 10/08/18 04:45 Labs: Laboratory Results - last 24 hr 10/08/18 04:45 Hgb 9.6 L Hct 30.2 L Assessment & Plan Post-op Postoperative Procedures Operation Date: 10/07/18 07:45 Actual Procedures Side Surgeon s Removal,spinal instru,posterior non-segmental, AND REVISION INSTRUMENTED POST FUSION Bari Webber MD p L5-S1 INSTRUMENTED FUSION WITH BONE GRAFT Bari Webber MD she is doing well. Mobilize with physical therapy. Anticipate discharge tomorrow.
[2018-10-08] MEDS: CITALOPRAM 20 MG TABLET PO (09:16)
[2018-10-08] MEDS: DOCUSATE 100 MG CAPSULE PO ×2 (09:16→19:12)
--- NOTE | 2018-10-08 09:55 | CM.DANOTE ---
DCP: Case received, EMR reviewed and met with patient. Introduced self and role. Obtained history and baseline health information from patient. DCP template assessment completed with information currently available. Patient is a 73 year old female who admitted yesterday morning to the care of the surgical team. Payer: confirmed: [facility] [employer]. Patient came to the hospital for a surgical procedure. She had L5-S1 Laminectomy, posterior fusion. Met with patient in her room. Was laying in her bed, alert and oriented. Has been up walking as well. Mother was in room at bedside. Patient resides in [place], has been a for a couple of years. Mother also resides in [place], and she has a son there as well named Allan. Her other son, Dylon, lives in the [facility]. Patient is not concerned about going home, for she has lots of family/caregivers to assist her. She has been independent prior to surgery. She will be working with physical therapy team again today. P: DCP to continue to follow. Patient could be discharged home tomorrow if medically stable, and clearance from therapy team. Bere Ramos RN/Foam Charger
--- NOTE | 2018-10-08 10:45 | PC.NURSE ---
Pt given 4mg of po dilaudid and helpful with discomfort. Dressing to lower back cdi but has a significant amount of drainage to distal end. Will be changed as needed. Pt heplocked and working with OT. Pts castro catheter taken out and pt tolerated well. Sitting up in chair comfortably. Voices no complaints at this time. Bp meds held this am due to lower bp. Rechecking now and bp 130s/80s with pulse of 60s. all bp meds given.
[2018-10-08] MEDS: METOPROLOL ER 50 MG TABLET 100 MG PO (10:54)
[2018-10-08] MEDS: AMLODIPINE 5 MG TABLET 10 MG PO (10:54)
[2018-10-08] MEDS: LISINOPRIL 20 MG TABLET 40 MG PO (10:54)
--- NOTE | 2018-10-08 11:13 | PC.NURSE ---
Rec'd bedside report. Pt sitting up to chair in no acute distress working with OT. States no needs at this time.
--- NOTE | 2018-10-08 11:37 | OT.IP.EVAL ---
Current Diagnoses Spinal stenosis, lumbar region with neurogenic claudication (10/07/18) Pseudarthrosis after fusion or arthrodesis (10/07/18) Strain of muscle, fascia and tendon of lower back, subsequent encounter (10/07/18) Arthrodesis status (10/07/18) Surgery Performed Operation Date: 10/07/18 07:45 Actual Procedures s Removal,spinal instru,posterior non-segmental, AND REVISION INSTRUMENTED POST FUSION - Bari Webber MD p L5-S1 INSTRUMENTED FUSION WITH BONE GRAFT - Bari Webber MD Past Medical History (Last Updated 09/30/18 @ 08:09 by Disha Membreno, RN) Toe infection (Acute ~2017) History of hysteroscopy (Acute) Hypertension (Acute) Lumbar stenosis with neurogenic claudication (Acute) Neutrophilia (Acute ~2009) Postmenopausal (Acute) Strain of lumbar region (Acute) Surgical History (Last Updated 09/24/18 @ 08:48 by Disha Membreno RN) Hx of lumbar discectomy (Acute 02/13/18) S/P lumbar spinal fusion (Acute) History of tonsillectomy Status post appendectomy Status post surgery (07/01/15) Occupational Therapy Inpatient Evaluation/Re-Eval M1 PT/OT-IP Prior Functional Status Start: 10/07/18 17:40 Freq: NEEDED Status: Active Protocol: Document 10/08/18 11:37 PJM (Rec: 10/08/18 12:58 PJM [id number]) Medical Review Prior Functional Status Medical History Reviewed Yes Communication WNL Mobility and Gait Pt stated she is ambulates using single point. Activities of Daily Living and IADL's Pt states she is independent with all self care and IADLS including driving, and cares for her small dog. Her activity level has been limited by low back pain recently. Social History Household Members none Living Arrangements House Number of Floors (Floors) One Floor Number of Stairs To Enter/Railing? 6 with B wide rails Home Environment Standard Height Toilet Tub/Shower Doors Home Equipment Four Wheel Walker Shower Seat without Backrest Steel Detailer Grab Bars In Shower Employment Status Retired Additional Social History Comment pt's son is staying with her for 6 months and can assist PRN, he works days. Pt's mother and friends can assist during day while son at work PRN. M2 OT-IP Current Condition Start: 10/08/18 12:40 Freq: Status: Active Protocol: Document 10/08/18 11:37 PJM (Rec: 10/08/18 12:58 PJM [email or web address]) Occupational Therapy Current Condition Current Condition Evaluation Date 10/08/18 Treatment Diagnosis decreased self care, mobility s/p L5-S1 revision lami w/PLIF Diagnosis Onset Date 10/07/18 Post Operative Precautions Lumbar Precautions Log Roll No Twisting Limit Bending Lifting Restriction of 10 lbs Gait Belt above Incisional Area M3 OT- IP Subjective and Pain Start: 10/08/18 12:40 Freq: Status: Active Protocol: Document 10/08/18 11:37 PJM (Rec: 10/08/18 12:58 PJM [email or web address]) OT- Subjective Occupational Therapy Visit Type Type Initial Evaluation Visit Start Time 10:35 Visit Stop Time 10:37 Total Visit Minutes 62 Notes Pt's mother observing this session. Occupational Therapy Visit Comments Patient Comments I would love to get out of bed. Patient/Caregiver Goals to go home tomorrow, be able to garden and take her dog to puppy class OT Pain Assessment Pain When Pain Assessed After Treatment Pain Present Pain Present Pain Reported Location back Intensity 5 Scale Used Numeric (1 - 10) Description Aching Acute Pain Behaviors Guarding Management Techniques Distraction Re-positioning Timing of Activity with Medications M4 OT- IP ADL's Start: 10/08/18 12:40 Freq: Status: Active Protocol: Document 10/08/18 11:37 PJM (Rec: 10/08/18 12:58 PJM [email or web address]) OT [id number] General Evaluation Self-Feeding Ability Independent OT ADL-Grooming General Evaluation Grooming Ability Standby Assistance Areas Needing Assistance Face Washing Contacts Comments OT Grooming Comments standing at sink for 3-4 min; provided education re: body mechanics OT ADL-Oral Care General Eval Oral Care Ability Standby Assistance OT ADL-Dressing General Eval Upper Body Dressing Ability Standby Assistance Lower Body Dressing Ability Moderate Assistance Areas Needing Assistance Underpants/Brief Pants/Shorts Socks Assistive Devices Dressing Assistive Devices Steel Detailer Sock Aid Comments OT Dressing Comments began education re: use of rig operator and sock aid for lower body dressing. Pt has rig operator ; hard sock aid provided. Pt wears slip on shoes, declines long shoe horn OT ADL-Toileting Comments OT Toileting Comments did not occur, gloria sweeney removed, provided education re : body mechanics OT ADL-Bathing Devices Bathing Equipment Long Handled Sponge or [place] Shower Chair without Arms Comments OT Bathing Comments Pt declines to shower here, provided education re: precautions, body mechanics, long bath sponge provided and fall prevention; pt will borrow shower seat without back from her mother M5 OT- IP IADL's Start: 10/08/18 12:40 Freq: Status: Active Protocol: Document 10/08/18 11:37 PJM (Rec: 10/08/18 12:58 PJ [email or web address]) OT-Instrumental Activities of Daily Living Deficits IADL Deficits Identified Deficits Home Safety Awareness Awareness of Need for Assistance at Home Good Awareness Ability to Problem Solve Emergency Able to Problem Solve Situations Medication Management Medication Management No Deficits Identified Money Management Money Management No Deficits Identified Meal Preparation Meal Preparation Caregiver Provides Assist Meal Preparation Comments family, friends to assist until pt able Gas Brazer Gas Brazer Caregiver Provides Assist Gas Brazer Comments family, friends to assist until pt able Driving Driving Caregiver Provides Assist Driving Comments family, friends to assist until pt able M6 OT- IP Functional Cognition Start: 10/08/18 12:40 Freq: Status: Active Protocol: Document 10/08/18 11:37 PJM (Rec: 10/08/18 12:58 PJ [email or web address]) Cognitive Factors Limiting Selfcare Function Cognitive Ability Level of Alertness Alert Patient Orientation Name Age Birthday Month Date Year Day of Week Place Situation Attention Span Ability Capable of Focused Attention Capable of Sustained Attention Ability to Follow Commands Able to Follow One Step Commands Memory Description No Deficits Noted Safety Awareness Decreased Ability to Apply Precautions Cognitive Comments Cognitive Assessment Comments Pt verbalizes 3/3 lumbar precautions, needs min cues to apply them (especially no twisting) during self care tasks. OT- Vision and Hearing OT- Hearing Assessment OT- Hearing Assessment WFL OT- Vision Assessment Visual Acuity WFL Glasses For Reading Contact Lenses M7 OT- IP Mobility and Balance Start: 10/08/18 12:40 Freq: Status: Active Protocol: Document 10/08/18 11:37 PJM (Rec: 10/08/18 12:58 PJ [email or web address]) OT- Bed Mobility Assessment Rolling Type of Rolling Roll to Right Level of Assistance Standby Assistance Supine to Sit Supine to Sit Assist Contact Guard Assistance Sit to Supine Sit to Supine Assist Standby Assistance Scooting Scooting to Edge of Bed Standby Assistance Scooting Up and Down in Bed Minimal Assistance OT-Transfer Assessment Sit to and From Stand Sit to and from Stand Contact Guard Assistance Transfers Transfer Ability Contact Guard Assistance Technique Transfer Destination Car Chair Transfer Technique Stand Step Pivot Devices Transfer Assistive Devices Gait Belt Front Wheeled Walker Comments Mobility Comments Pt needs mod verbal cues for log roll technique. Provided education re: car transfer technique and plastic bag for car seat provided. OT- Gait Assessment Gait Gait Assistance Required: Contact Guard Assist Assistive Devices Assistive Device Gait Belt Front Wheeled Walker Comments Gait Ability Comments Pt walked 25 ft in room with FWW this session with no LOB or dizziness. OT- Balance Assessment Sitting Balance and Reactions Static Sitting Balance Ability Good Dynamic Sitting Balance Ability Good Standing Balance and Reactions Static Standing Balance Ability Good M8 OT- IP Objective Assessments Start: 10/08/18 12:40 Freq: Status: Active Protocol: Document 10/08/18 11:37 PJM (Rec: 10/08/18 12:58 PJM [email or web address]) OT Gross Range of Motion Upper Extremity Range of Motion Assessment Within Functional Limits OT Strength Upper Extremity Strength Assessment Within Functional Limits Hand [employer] Associate Strength Hand Dominance Right OT- Coordination Assessment Comments Coordination Comments BUE WNL OT-Muscle Tone Assessment Muscle Tone WNL Yes OT Sensation Assessment Comments Summary Comments BUE WNL by pt report Edema Edema Absent M9 OT- IP Assessment and Plan Start: 10/08/18 12:40 Freq: Status: Active Protocol: Document 10/08/18 11:37 PJM (Rec: 10/08/18 12:58 PJM [email or web address]) OT Summary Assessment and Plan Potential Rehabilitation Potential Good Analytic Complexity at Evaluation Low Summary OT Impairments Pain Functional Mobility Dressing Toileting Bathing Toilet Transfers Shower Transfers Assessment Summary Low complexity OT assessment completed and provided education re: lumbar spine precautions, sitting posture, optimal chair selection, body mechanics and adapted ADL techniques. Pt moving well today. Plan 1 additional as pt requesting further practice re: use of lower body dressing equipment Goals Grooming Goal Independent Dressing Goal Independent Steel Detailer Sock Aid Toileting Goal Independent Toilet Transfer Goal Independent Patient/Caregiver Education Goal Demonstrate Post-Op Precautions Demonstrate Energy Conservation and Pacing Caregiver Independent Assisting Patient Days to Meet Goals 1 Frequency of Treatment Frequency Of Treatment Once a Day Treatment Plan OT Treatment Plan ADL Training Functional Mobility Patient/Family Education Discharge Planning Discharge Recommendations OT Discharge Recommendations Home with Assistance
--- NOTE | 2018-10-08 12:00 | PT.IPTN ---
Current Diagnoses Spinal stenosis, lumbar region with neurogenic claudication (10/07/18) Pseudarthrosis after fusion or arthrodesis (10/07/18) Strain of muscle, fascia and tendon of lower back, subsequent encounter (10/07/18) Arthrodesis status (10/07/18) Surgery Performed Operation Date: 10/07/18 07:45 Actual Procedures s Removal,spinal instru,posterior non-segmental, AND REVISION INSTRUMENTED POST FUSION - Bari Webber MD p L5-S1 INSTRUMENTED FUSION WITH BONE GRAFT - Bari Webber MD Physical Therapy Treatment Note M2 PT-IP Current Condition Start: 10/07/18 17:40 Freq: NEEDED Status: Active Protocol: Document 10/07/18 15:52 AB (Rec: 10/07/18 17:50 AB [id number]) Physical Therapy Current Condition Current Condition Evaluation Date 10/07/18 Treatment Diagnosis s/p L5S1 fusion; difficulty in walking Onset Date 10/07/18 Precautions Lumbar Precautions Log Roll No Twisting Limit Bending Lifting Restriction of 10 lbs Gait Belt above Incisional Area M3 PT-IP Subjective Start: 10/07/18 17:40 Freq: NEEDED Status: Active Protocol: Document 10/08/18 12:00 GGD (Rec: 10/08/18 16:16 GGD [id number]) Subjective Physical Therapy Visit Type Type Patient Refusal Notes Pt refused states she increase in pain after working with OT . PT Discharge Recommendations Home with Assistance
--- NOTE | 2018-10-08 13:45 | PT.IPTN ---
Current Diagnoses Spinal stenosis, lumbar region with neurogenic claudication (10/07/18) Pseudarthrosis after fusion or arthrodesis (10/07/18) Strain of muscle, fascia and tendon of lower back, subsequent encounter (10/07/18) Arthrodesis status (10/07/18) Surgery Performed Operation Date: 10/07/18 07:45 Actual Procedures s Removal,spinal instru,posterior non-segmental, AND REVISION INSTRUMENTED POST FUSION - Bari Webber MD p L5-S1 INSTRUMENTED FUSION WITH BONE GRAFT - Bari Webber MD Physical Therapy Treatment Note M2 PT-IP Current Condition Start: 10/07/18 17:40 Freq: NEEDED Status: Active Protocol: Document 10/07/18 15:52 AB (Rec: 10/07/18 17:50 AB [id number]) Physical Therapy Current Condition Current Condition Evaluation Date 10/07/18 Treatment Diagnosis s/p L5S1 fusion; difficulty in walking Onset Date 10/07/18 Precautions Lumbar Precautions Log Roll No Twisting Limit Bending Lifting Restriction of 10 lbs Gait Belt above Incisional Area M3 PT-IP Subjective Start: 10/07/18 17:40 Freq: NEEDED Status: Active Protocol: Document 10/08/18 13:45 GGD (Rec: 10/08/18 15:03 GGD [id number]) Subjective Physical Therapy Visit Type Type Treatment Note Visit Start Time 13:45 Visit Stop Time 14:10 Total Visit Minutes 25 Number of PRICER BAGGER Visits 1 Physical Therapy Visit Comments Patient Comments Pt willing to work with therapy. Therapy Pain Assessment Pain When Pain Assessed At Rest Pain Present Pain Present Pain Reported M4 PT-IP Mobility and Gait Start: 10/07/18 17:40 Freq: NEEDED Status: Active Protocol: Document 10/08/18 13:45 GGD (Rec: 10/08/18 15:03 GGD [id number]) PT-Bed Mobility Assessment Rolling Type of Rolling Log Rolling Level of Assist Standby Assistance Supine to Sit Supine to Sit Standby Assistance Sit to Supine Sit to Supine Contact Guard Assistance 1 Person Assistance Scooting Scooting to Edge of Bed Standby Assistance PT-Transfer Assessment Sit to and From Stand Sit to and from Stand Contact Guard Assistance 1 Person Assistance Use of Upper Extremities Equipment Transfer Assistive Device Gait Belt Front Wheeled Walker Orthotic/Prosthetic Devices or Brace: No Transfers Transfer Destination Bed Transfer Ability Level of Assist Contact Guard Assistance Gait Assessment Gait Gait Assistance Required: Contact Guard Assist Distance (Feet) 280 Able to Maintain Weight Bearing Status Yes During Gait Assistive Devices Assistive Device Gait Belt 4 Wheeled Walker Orthotic/Prosthetic Devices or Brace: No Gait Deviations General Gait Pattern Antalgic Decreased Stride Length Decreased Feet Clearance Factors Limiting Gait Function Factors Limiting Gait Function Decreased Activity Tolerance Decreased Sensation Decreased Strength Limited Range of Motion Pain Poor Balance Poor Safety Awareness Stair Climbing Assessment Evaluation Level of Assist On Stairs Contact Guard Assistance Devices Stair Climbing Assistive Devices Right Railing Technique/Endurance Stair Climbing Direction Ascend and Descend Stair Climbing Technique Step to Step Number of Steps Climbed 3 Query Text: Stair Climbing Set # Repetitions (reps) 2 M5 PT-IP Objective Assessments Start: 10/07/18 17:40 Freq: NEEDED Status: Active Protocol: Document 10/07/18 15:52 AB (Rec: 10/07/18 17:50 AB [id number]) Orientation Orientation/Cognition Level of Alertness Alert Orientation Name Age Birthday Month Date Year Day of Week Place Situation Language Function Ability No Deficits Noted Safety Awareness Understands Safety Issues Memory Description No Deficits Noted Gross Range of Motion Lower Extremity ROM Assessment Within Functional Limits Strength Lower Extremity Strength Assessment Bilaterally Impaired Hip 4-/5 Knee 4-/5 Coordination Assessment Gross Coordination Gross Coordination WNL Sensation Assessment Sensation Gross Sensation Right LE Impaired Sensation Description Numbness Comments Sensation Comments c/o chronic RLE decrease in sensation Muscle Tone Muscle Tone WNL Yes M6 PT-IP Treatment Start: 10/07/18 17:40 Freq: NEEDED Status: Active Protocol: Document 10/08/18 13:45 GGD (Rec: 10/08/18 15:03 GGD [id number]) Physical Therapy Treatment Education Education Provided Precautions M7 PT-IP Assessment and Plan Start: 10/07/18 17:40 Freq: NEEDED Status: Active Protocol: Document 10/08/18 13:45 GGD (Rec: 10/08/18 15:03 GGD [id number]) PT Summary Assessment and Plan Summary Assessment Summary Pt improving in mobility. She was able to progress gait and was safe with 4WW. Pt mild weakness with ascending stairs , but safe. She is safe for home D/C when medically stable . Frequency of Treatment Frequency Of Treatment Twice a Day Treatment Plan Physical Therapy Treatment Plan Bed Mobility Training Transfer Training Gait Training Therapeutic Exercise Balance Retraining Post Op Education Discharge Planning Hot or Cold Pack Neuromuscular Re-ed Coordination Retraining Manual Therapy Recommendations To Nursing Amount of Assist Needed 1 Person Assist Discharge Recommendations PT Discharge Recommendations Home with Assistance
[2018-10-08] MEDS: SENNOSIDES 8.6 MG TABLET 17.2 MG PO (19:12)
[2018-10-09] MEDS: HYDROMORPHONE 2 MG TABLET 4 MG PO ×4 (01:02→09:44)
[2018-10-09 03:58] VITALS: BP 121/52; PULSE 61; RESP 18; TEMP 36.6; O2SAT 91
[2018-10-09] MEDS: PANTOPRAZOLE 20 MG TABLET PO (05:50)
--- NOTE | 2018-10-09 07:36 | PM.PNPO.1 ---
Subjective Date Patient Seen: 10/09/18 Time Patient Seen: 07:36 Interval history: She is doing great. Pain is about a 4 across the back. She is independent with ambulation. Exam Vital Signs (past 8 hours): - 10/08/18 23:50 10/09/18 03:58 Temperature 98.6 F 97.9 F Pulse Rate 66 61 Respiratory Rate 18 18 Blood Pressure 147/63 H 121/52 L Pulse Oximetry 92 91 Oxygen Delivery Method Room Air Oxygen Flow Rate 0 Const Orientation: alert and oriented x3 Back/Spine/Pelvis Other: Minimal drainage. 5/5 motor both lower extremities Objective Labs Result Diagrams: 10/08/18 04:45 Assessment & Plan Post-op Postoperative Procedures Operation Date: 10/07/18 07:45 Actual Procedures Side Surgeon s Removal,spinal instru,posterior non-segmental, AND REVISION INSTRUMENTED POST FUSION Bari Webber MD p L5-S1 INSTRUMENTED FUSION WITH BONE GRAFT Bari Webber MD she is doing great after her fusion. She has recovered a fair amount of her right leg strength back. Discharge home today
--- NOTE | 2018-10-09 07:39 | PM.DS.1 ---
History of Present Illness Date Patient Seen: 10/09/18 Time Patient Seen: 07:39 Chief complaint: [id number] LUMBAR Narrative: 73-year-old female with a lumbar pseudoarthrosis. She initially had a L2 through 5 posterior laminectomy and fusion. She then later had a stand-alone L5-S1 ALIF, both of these done at [facility] in the past. She began getting recurrent symptoms into the right leg and was found to have foraminal stenosis. As her CT scan appeared to show a solid fusion at the lowest level she had undergone a right-sided L5-S1 laminectomy and foraminotomy. She did well initially and then began getting symptoms again. She was taken back for a more extensive revision decompression. She did well for about 6 weeks and then began getting recurrence of her symptoms and leaning more to the side. Revision scans indicated that she probably actually still had a pseudoarthrosis at the L5-S1 level. Discharge Providers Date of admission: 10/07/18 06:02 Discharge Date: 10/09/18 Primary care physician: Zakiya Crooks PA-C Consults: 10/07/18 11:14 Consult to Occupational Therapy Evaluate & Treat Comment: Physician Instructions: Evaluate and treat Consult to Physical Therapy Evaluate & Treat Comment: Physician Instructions: Evaluate and Treat Discharge provider: Bari Webber MD Summary Discharge Diagnosis: Lumbar stenosis with radiculopathy Lumbar fusion pseudoarthrosis Hospital Course: She is brought to the operating room on 10/07 18 where she underwent removal of her previous hardware and an instrumented fusion at L5-S1. Postoperatively she did well. Her pain was under good control. With stabilization of her pseudarthrosis, she began getting significant improvement of her right leg symptoms. The pain was significantly decreased in most of her muscle function root was restored. She was doing well and by postoperative day 2she was stable for discharge home. Status at Discharge Cognitive/behavioral status at discharge: oriented Functional status at discharge: uses cane/walker Overall status at discharge: patient is back to baseline Exam Vital Signs (past 8 hours): - 10/08/18 23:50 10/09/18 03:58 Temperature 98.6 F 97.9 F Pulse Rate 66 61 Respiratory Rate 18 18 Blood Pressure 147/63 H 121/52 L Pulse Oximetry 92 91 Oxygen Delivery Method Room Air Oxygen Flow Rate 0 Const Orientation: alert and oriented x3 Back/Spine/Pelvis Other: Mild drainage. 5/5 motor both lower extremities. Objective Labs Result Diagrams: 10/08/18 04:45 Discharge Plan Discharge Plan Patient Disposition: Home Discharge comment: f/u 1.5 wks Discharge Med Rec/Prescriptions Prescriptions: New docusate sodium [DOK] 100 mg Capsule 100 mg PO BID PRN (Reason: constipation) Qty: 20 RF: 0 hydromorphone 2 mg Tablet See Rx Instructions .ROUTE .COMPLEX PRN (Reason: Pain, Severe (7-10)) Qty: 40 RF: 0 hydroxyzine pamoate 25 mg Capsule 25 mg PO Q4HR PRN (Reason: spasms) Qty: 20 RF: 0 Continued omeprazole 20 MG capsule,delayed release(DR/EC) 20 mg PO QDAY Qty: 0 RF: 0 lisinopril 40 mg Tablet 40 mg PO DAILY RF: 0 metoprolol succinate 100 mg Tablet Extended Release 24 Hr 100 mg PO DAILY RF: 0 citalopram 20 mg Tablet 20 mg PO DAILY RF: 0 aspirin 325 mg Tablet 325 mg PO DAILY PRN (Reason: Headache) RF: 0 amlodipine [Norvasc] 10 mg Tablet 10 mg PO DAILY RF: 0 Discontinued hydromorphone [Dilaudid] 2 MG tablet 2 - 4 mg PO Q3HP PRN (Reason: Pain (Scale Score 4-6)) RF: 0 naproxen sodium [Aleve] 220 mg Capsule 440 mg PO BID PRN (Reason: Pain) RF: 0 Follow up/Referrals: Zakiya Crooks PA-C [Primary Care Provider] - Provider Discharge Instructions Diet: Diet as Tolerated Activity: limited BLT (10 lbs max) Skin/Wound/Dressing Care Report to your healthcare provider any signs of infection, such as:: chills, fever, night sweats, increased pain, unusual drainage and unusual redness Dressing: may change and shower POD#5 (Saturday) Visit Report/Discharge Packet Instructions: DI for Transforaminal Lumbar Interbody Fusion Stand Alone Forms: Surgery Discharge Discharge Data Primary Care Provider: Zakiya Crooks Attending Provider: Bari Webber Admit Date/Time: 10/07/18 06:02
[2018-10-09 07:58] VITALS: BP 140/57; PULSE 64; RESP 16; TEMP 37.6; O2SAT 94
[2018-10-09] MEDS: ASPIRIN 325 MG TABLET PO (08:56)
[2018-10-09] MEDS: DOCUSATE 100 MG CAPSULE PO (08:57)
[2018-10-09] MEDS: CITALOPRAM 20 MG TABLET PO (08:57)
[2018-10-09] MEDS: AMLODIPINE 5 MG TABLET 10 MG PO (08:57)
[2018-10-09] MEDS: METOPROLOL ER 50 MG TABLET 100 MG PO (08:57)
[2018-10-09] MEDS: LISINOPRIL 20 MG TABLET 40 MG PO (08:57)
--- NOTE | 2018-10-09 09:30 | PT.IPTN ---
Current Diagnoses Spinal stenosis, lumbar region with neurogenic claudication (10/07/18) Pseudarthrosis after fusion or arthrodesis (10/07/18) Strain of muscle, fascia and tendon of lower back, subsequent encounter (10/07/18) Arthrodesis status (10/07/18) Surgery Performed Operation Date: 10/07/18 07:45 Actual Procedures s Removal,spinal instru,posterior non-segmental, AND REVISION INSTRUMENTED POST FUSION - Bari Webber MD p L5-S1 INSTRUMENTED FUSION WITH BONE GRAFT - Bari Webber MD Physical Therapy Treatment Note M2 PT-IP Current Condition Start: 10/07/18 17:40 Freq: NEEDED Status: Active Protocol: Document 10/07/18 15:52 AB (Rec: 10/07/18 17:50 AB [id number]) Physical Therapy Current Condition Current Condition Evaluation Date 10/07/18 Treatment Diagnosis s/p L5S1 fusion; difficulty in walking Onset Date 10/07/18 Precautions Lumbar Precautions Log Roll No Twisting Limit Bending Lifting Restriction of 10 lbs Gait Belt above Incisional Area M3 PT-IP Subjective Start: 10/07/18 17:40 Freq: NEEDED Status: Active Protocol: Document 10/09/18 09:30 GGD (Rec: 10/09/18 12:24 GGD [id number]) Subjective Physical Therapy Visit Type Type Treatment Note Visit Start Time 09:05 Visit Stop Time 09:30 Total Visit Minutes 25 Number of GYMNASTICS COACH OR INSTRUCTOR Visits 2 Physical Therapy Visit Comments Patient Comments Pt states she want's to go home. Therapy Pain Assessment Pain When Pain Assessed At Rest Pain Present Pain Present Pain Reported Location back Intensity 4 Scale Used Numeric (1 - 10) M4 PT-IP Mobility and Gait Start: 10/07/18 17:40 Freq: NEEDED Status: Active Protocol: Document 10/09/18 09:30 GGD (Rec: 10/09/18 12:24 GGD [id number]) PT-Bed Mobility Assessment Rolling Type of Rolling Log Rolling Level of Assist Standby Assistance Supine to Sit Supine to Sit Standby Assistance Contact Guard Assistance 1 Person Assistance Scooting Scooting to Edge of Bed Standby Assistance PT-Transfer Assessment Sit to and From Stand Sit to and from Stand Standby Assistance 1 Person Assistance Use of Upper Extremities Equipment Transfer Assistive Device Gait Belt 4 Wheeled Walker Orthotic/Prosthetic Devices or Brace: No Transfers Transfer Destination Chair Transfer Ability Level of Assist Contact Guard Assistance Comments Mobility Comments PT need min cues for full log roll. Gait Assessment Gait Gait Assistance Required: Contact Guard Assist Distance (Feet) 250 Able to Maintain Weight Bearing Status Yes During Gait Assistive Devices Assistive Device Gait Belt 4 Wheeled Walker Orthotic/Prosthetic Devices or Brace: No Gait Deviations General Gait Pattern Antalgic Decreased Stride Length Decreased Feet Clearance Factors Limiting Gait Function Factors Limiting Gait Function Decreased Activity Tolerance Decreased Sensation Decreased Strength Limited Range of Motion Pain Poor Balance Poor Safety Awareness M5 PT-IP Objective Assessments Start: 10/07/18 17:40 Freq: NEEDED Status: Active Protocol: Document 10/07/18 15:52 AB (Rec: 10/07/18 17:50 AB [id number]) Orientation Orientation/Cognition Level of Alertness Alert Orientation Name Age Birthday Month Date Year Day of Week Place Situation Language Function Ability No Deficits Noted Safety Awareness Understands Safety Issues Memory Description No Deficits Noted Gross Range of Motion Lower Extremity ROM Assessment Within Functional Limits Strength Lower Extremity Strength Assessment Bilaterally Impaired Hip 4-/5 Knee 4-/5 Coordination Assessment Gross Coordination Gross Coordination WNL Sensation Assessment Sensation Gross Sensation Right LE Impaired Sensation Description Numbness Comments Sensation Comments c/o chronic RLE decrease in sensation Muscle Tone Muscle Tone WNL Yes M6 PT-IP Treatment Start: 10/07/18 17:40 Freq: NEEDED Status: Active Protocol: Document 10/09/18 09:30 GGD (Rec: 10/09/18 12:24 GGD [id number]) Physical Therapy Treatment Education Education Provided Precautions M7 PT-IP Assessment and Plan Start: 10/07/18 17:40 Freq: NEEDED Status: Active Protocol: Document 10/09/18 09:30 GGD (Rec: 10/09/18 12:24 GGD [id number]) PT Summary Assessment and Plan Summary Assessment Summary Pt needed cues with log roll. She was safe and stable with gait with 4WW. She is safe for home D/C when medically stable. Frequency of Treatment Frequency Of Treatment Twice a Day Treatment Plan Physical Therapy Treatment Plan Bed Mobility Training Transfer Training Gait Training Therapeutic Exercise Balance Retraining Post Op Education Discharge Planning Hot or Cold Pack Neuromuscular Re-ed Coordination Retraining Manual Therapy Recommendations To Nursing Amount of Assist Needed 1 Person Assist Discharge Recommendations PT Discharge Recommendations Home with Assistance
[2018-10-09 11:09] VITALS: BP 121/71; PULSE 62; RESP 16; TEMP 37.3; O2SAT 99
--- NOTE | 2018-10-09 13:08 | OT.IP.TRT ---
Current Diagnoses Spinal stenosis, lumbar region with neurogenic claudication (10/07/18) Pseudarthrosis after fusion or arthrodesis (10/07/18) Strain of muscle, fascia and tendon of lower back, subsequent encounter (10/07/18) Arthrodesis status (10/07/18) Surgery Performed Operation Date: 10/07/18 07:45 Actual Procedures s Removal,spinal instru,posterior non-segmental, AND REVISION INSTRUMENTED POST FUSION - Bari Webber MD p L5-S1 INSTRUMENTED FUSION WITH BONE GRAFT - Bari Webber MD Occupational Therapy Treatment Note M3 OT- IP Subjective and Pain Start: 10/08/18 12:40 Freq: Status: Active Protocol: Document 10/09/18 13:08 PJM (Rec: 10/09/18 16:51 PJM [id number]) OT- Subjective Occupational Therapy Visit Type Type Treatment Note Visit Start Time 12:30 Visit Stop Time 13:08 Total Visit Minutes 38 Notes Pt's mother here for education and will be helping pt after d/c during the day while pt's son at work. Occupational Therapy Visit Comments Patient Comments I wish I could have a bowel movement. I feel crampy and bloated. Patient/Caregiver Goals to go home today and see her dog OT Pain Assessment Pain When Pain Assessed After Treatment Pain Present Pain Present Pain Reported Location Abdomen Intensity 8 Scale Used Numeric (1 - 10) Description Cramping Pressure Pain Behaviors Facial Grimacing Guarding Management Techniques Distraction Re-positioning M4 OT- IP ADL's Start: 10/08/18 12:40 Freq: Status: Active Protocol: Document 10/09/18 13:08 PJM (Rec: 10/09/18 16:51 PJM [id number]) OT ADL-Dressing General Eval Upper Body Dressing Ability Independent Lower Body Dressing Ability Standby Assistance Areas Needing Assistance Pull-Over Shirt Underpants/Brief Pants/Shorts Socks Assistive Devices Dressing Assistive Devices Vegetable Loader Sock Aid Comments OT Dressing Comments Provided further education re: use of antique furniture repairer, sock aid for lower body dressing. Dressing training interrupted by pt's urgent need to use bathroom. OT ADL-Toileting General Evaluation Toileting Ability Independent Areas Needing Assistance Perform Perineal Hygiene Comments OT Toileting Comments Provided education re: body mechanics. Pt declines toilet paper aid. OT ADL-Bathing Comments OT Bathing Comments Pt declined to shower here M7 OT- IP Mobility and Balance Start: 10/08/18 12:40 Freq: Status: Active Protocol: Document 10/09/18 13:08 PJM (Rec: 10/09/18 16:51 [facility] [id number]) OT- Bed Mobility Assessment Rolling Type of Rolling Roll to Right Level of Assistance Independent Head of Bed Elevated Bedrails Supine to Sit Supine to Sit Assist Independent Scooting Scooting to Edge of Bed Independent OT-Transfer Assessment Sit to and From Stand Sit to and from Stand Independent Transfers Transfer Ability Independent Technique Transfer Destination Chair Toilet Transfer Technique Stand Step Pivot Devices Transfer Assistive Devices Front Wheeled Walker OT- Gait Assessment Gait Gait Assistance Required: Standby Assistance Distance (Feet) 20 Assistive Devices Assistive Device Front Wheeled Walker Comments Gait Ability Comments no loss of balance noted OT- Balance Assessment Sitting Balance and Reactions Static Sitting Balance Ability Good Dynamic Sitting Balance Ability Good Standing Balance and Reactions Static Standing Balance Ability Good Dynamic Standing Balance Ability Good Comments Other Balance Tests/Deviations/Treatment during lower body clothing : management M9 OT- IP Assessment and Plan Start: 10/08/18 12:40 Freq: Status: Active Protocol: Document 10/09/18 13:08 PJM (Rec: 10/09/18 16:51 [facility] [id number]) OT Summary Assessment and Plan Summary Progress Towards Goals Safe For Discharge Goals Met Assessment Summary All OT education completed and goals achieved today with pt and her mother. Pt c/o abdominal pain and need to have bowel movement at end of session. RN aware and pt may still d/c home today if this resolves. Her son lives with her and works days. Her mother and friends will assist PRN while son at work. No further OT services needed. Frequency of Treatment Frequency Of Treatment Discharge Discharge Recommendations OT Discharge Recommendations Home with Assistance
== END 2018-10-09 14:00 | disposition home or self-care (01) | DRG 460 ==
PROVIDERS: Admitting Provider Orthopaedic Surgery; Family Provider Family Medicine Geriatric Medicine; PCP Physician Assistant Medical; Visit Provider Orthopaedic Surgery
PROC: 0SG3071 Fusion of Lumbosacral Joint with Autologous Tissue Substitute, Posterior Approach, Posterior Column, Open Approach (ICD-10-PCS; 2018-10-07 07:45)
PROC: 0SG3071 Fusion of Lumbosacral Joint with Autologous Tissue Substitute, Posterior Approach, Posterior Column, Open Approach (ICD-10-PCS; 2018-10-07 07:45)
DX: M48.07 Spinal stenosis, lumbosacral region (principal); M96.0 Pseudarthrosis after fusion or arthrodesis; M48.062 Spinal stenosis, lumbar region with neurogenic claudication; I10 Essential (primary) hypertension
CPT/HCPCS: 36415; 72100; 76000; 85014; 85018; 94760; 97116; 97161; 97165; 97530; 97535; C1776; C9290; J0330; J0690; J1100; J1170; J2250; J2405; J2704; J3010

== ENCOUNTER → 2019-06-28 10:39 | Outpatient (CLI) | payer MEDICARE, BC, SELFPAY ==
[2018-10-07 07:11] VITALS: BMI 28.3
--- NOTE | 2019-06-28 | DI.MRI.S_ITS ---
PROCEDURE: MR THORACIC SPINE WO CON INDICATIONS: Postlaminectomy syndrome, not elsewhere classified TECHNIQUE: Noncontrast sagittal T1 spine echo and T2 fast spin echo, sagittal STIR, axial T1 and T2 fast spin echo through the thoracic spine. COMPARISON: None. FINDINGS: Image quality: Excellent. Alignment and Curvature: There is focal accentuated thoracolumbar kyphosis. Bone Marrow: Marrow is of normal overall signal. No acute vertebral body compression fractures. Spinal Cord: Visualized spinal cord is normal in size and signal. Paraspinous Soft Tissues: No paravertebral masses. Miscellaneous: Within the thoracic spine, no significant neural foraminal or central canal narrowing can be seen. At the L1-L2 level, there is focal moderate to severe disc space narrowing. At least moderate disc bulge is seen, which is eccentric to the left. There is minimal right-sided and moderate left-sided neural foraminal narrowing seen. A moderate central canal narrowing is seen. There is partial visualization of lumbar spine fixation hardware. IMPRESSION: No significant thoracic spine abnormality is seen. Focal L1-L2 degenerative change noted. Dictated by: Francisco Chappell M.D. on 06/29/2019 at 9:34 Approved by: Francisco Chappell M.D. on 06/29/2019 at 9:38
== END ==
PROVIDERS: Family Provider Family Medicine Geriatric Medicine; PCP Physician Assistant Medical; Referring Provider Physical Medicine & Rehabilitation; Visit Provider Physical Medicine & Rehabilitation
DX: M96.1 Postlaminectomy syndrome, not elsewhere classified (principal); M47.816 Spondylosis without myelopathy or radiculopathy, lumbar region
CPT/HCPCS: 72146

== ENCOUNTER → 2019-12-09 12:54 | Outpatient (CLI) | payer MEDICARE, BC, SELFPAY ==
[2018-10-07 07:11] VITALS: BMI 28.3
--- NOTE | 2019-12-09 | DI.MRI.S_ITS ---
PROCEDURE: MR LUMBAR SPINE WO CON INDICATIONS: Lumbago with sciatica, right side TECHNIQUE: Noncontrast sagittal T1 spin echo and T2 fast echo, sagittal STIR, axial T1 and T2 fast spin echo through the lumbar spine. In cases with scoliosis, additional coronal T2 fast spin echo may be performed. COMPARISON: [facility], MR, L-SPINE W&WO CONTRAST, 03/27/2017, 13:29. [facility], MR, L-SPINE W&WO CONTRAST, 02/02/2016, 8:07. [facility], MR, L-SPINE W&WO CONTRAST, 06/17/2014, 12:54. [facility], MR, MR THORACIC SPINE WO CON, 06/28/2019, 10:53. [facility], CT, CT LUMBAR SPINE WO CON, 09/02/2018, 10:21. [facility], MR, MR LUMBAR SPINE WO CON, 08/08/2018, 9:58. FINDINGS: Image quality: Excellent. Alignment and Curvature: There is moderate dextroconvex thoracolumbar scoliosis. Bone Marrow: Marrow is of normal overall signal. No acute vertebral body compression fractures. Spinal Cord: Conus medullaris terminates at the L1 level. Visualized cord demonstrates normal signal and size. Paraspinous Soft Tissues: No paravertebral masses. Postoperative changes are seen, with bilateral pedicle screws at the L2 through S1 levels. Vertical fixation rods are seen. Anteriorly placed fixation hardware is seen at L5-S1. Disc spacers are seen at L2-3, L3-4, L4-5, and L5-S1. At L2-3 on the left, 1 of the disc spacers is anteriorly located, as on series 6, image 12. There has been removal of portions of the posterior elements. T12-L1: The disc height is well-preserved. Loss of disc signal is seen at this level. Mild to moderate disc bulge is seen, which is eccentric to the right. There is a right foraminal disc protrusion, as on series 10, image 10. There is moderate to severe right-sided and minimal left-sided neural foraminal narrowing seen. No significant central canal narrowing is seen. These imaging findings have progressed compared to the prior study. L1-L2: Moderate to severe loss of disc height and disc signal can be seen. Bridging endplate osteophytes are seen. Moderate prominent disc bulge is seen, which is eccentric to the left. There is mild right-sided and moderate left-sided neural foraminal narrowing seen. Mild to moderate facet hypertrophy is seen. Mild to moderate central canal narrowing is seen. When comparison is made with the prior examination, these findings are similar. L2-L3: Moderate loss of disc height is seen. Loss of disc signal is seen. Moderate generalized disc bulge is seen. Mild to moderate facet hypertrophy is seen at this level. There is moderate left-sided and no significant right-sided neural foraminal narrowing seen. Mild to moderate central canal narrowing is seen. When comparison is made with the prior examination, these findings are similar. L3-L4: Mild loss of disc height and disc signal can be seen. Moderate disc bulge is seen, which is eccentric to the left. There is at least moderate facet hypertrophy seen. There is mild to moderate bilateral neural foraminal narrowing seen. Moderate central canal narrowing is seen. When comparison is made with the prior examination, these findings are similar. L4-L5: Moderate loss of disc height is seen. Mild to moderate disc bulge is seen. There is moderate bilateral neural foraminal narrowing seen. The central canal is widely patent. When comparison is made with the prior examination, these findings are similar. L5-S1: [id number]-[id number] loss of disc height is seen. Moderate disc bulge is seen, which is eccentric to the right. Mild to moderate facet hypertrophy is seen. There is moderate to severe bilateral neural foraminal narrowing seen, right worse than left. There is a degree of compression seen upon the exiting nerve roots. The central canal is widely patent. When comparison is made with the prior examination, these findings are similar. IMPRESSION: Extensive postoperative changes are seen, which are similar to the prior study. Dextroconvex scoliosis. Multiple levels of degenerative change are seen, with mild progression at T12-L1 compared to 2019. Dictated by: Francisco Chappell M.D. on 12/09/2019 at 13:28 Approved by: Francisco Chappell M.D. on 12/09/2019 at 13:36
== END ==
PROVIDERS: Family Provider Family Medicine Geriatric Medicine; PCP Physician Assistant Medical; Referring Provider Family Medicine; Visit Provider Family Medicine
DX: M54.41 Lumbago with sciatica, right side (principal); R53.1 Weakness; M47.815 Spondylosis without myelopathy or radiculopathy, thoracolumbar region; M47.816 Spondylosis without myelopathy or radiculopathy, lumbar region; M47.817 Spondylosis without myelopathy or radiculopathy, lumbosacral region; M41.85 Other forms of scoliosis, thoracolumbar region; Z98.1 Arthrodesis status
CPT/HCPCS: 72148

== ENCOUNTER → 2020-06-22 11:59 | Outpatient (CLI) | payer MEDICARE, BC, SELFPAY ==
[2018-10-07 07:11] VITALS: BMI 28.3
--- NOTE | 2020-06-22 | DI.MRI.S_ITS ---
PROCEDURE: MR CERVICAL SPINE WO CON INDICATIONS: Radiculopathy, cervical region TECHNIQUE: Noncontrast sagittal T1 spin echo and T2 fast spin echo, sagittal STIR, foraminal oblique sagittal T2 fast spin echo, and axial gradient echo or T2 fast spin echo through the cervical spine. COMPARISON: None. FINDINGS: Image quality: Excellent. Alignment and Curvature: There is loss of normal cervical lordosis. Mild grade 1 retrolisthesis of C2 on C3. Mild grade 1 anterolisthesis of C3 on C4 and C4 on C5. Mild grade 1 retrolisthesis of C5 on C6. Bone Marrow: Marrow demonstrates normal overall signal. 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 Is mild reactive signal within the endplates adjacent to the C3-C4, C4-C5, and C5-C6 intervertebral discs. Spinal Cord: Visualized spinal cord has normal size and signal. No cerebellar tonsillar herniation. Paraspinous Soft Tissues: No paravertebral masses. Prevertebral soft tissues are normal in thickness. C2-C3: Moderate disc height loss and desiccation. Mild diffuse disc bulge with superimposed right posterolateral protrusion. Mild facet and uncovertebral hypertrophy bilaterally. Mild canal stenosis. Mild bilateral foraminal stenosis. C3-C4: Moderate disc desiccation. Mild disc height loss and diffuse disc bulge. Mild facet and uncovertebral hypertrophy bilaterally. Mild canal stenosis. Mild left greater than right foraminal stenosis. C4-C5: Mild disc height loss and desiccation. Mild diffuse disc bulge. Mild facet and uncovertebral hypertrophy bilaterally. Mild canal stenosis. Mild bilateral foraminal stenosis. C5-C6: Moderate disc height loss and desiccation. Moderate diffuse disc bulge. Moderate facet and uncovertebral hypertrophy bilaterally. Moderate to severe canal stenosis. Minimal anterior cord flattening. Severe right and moderate left foraminal stenosis. Right C6 nerve root compression. C6-C7: Partial coalition. Mild facet and uncovertebral hypertrophy bilaterally. 5 mm periarticular cyst arising from the right facet joint. Mild canal stenosis. Severe right and mild left foraminal stenosis. Right C7 nerve root compression. C7-T1: Moderate disc desiccation. No significant canal, or foraminal stenosis. IMPRESSION: 1. Multilevel degenerative disc and facet disease, as well as uncovertebral hypertrophy. 2. Multilevel canal stenoses, worst at C5-C6, where there is minimal associated cord flattening. 3. Multilevel foraminal stenoses, worst at C5-C6 and C6-C7 as described above where there is associated intraforaminal nerve root compression. Recommend correlation with clinical symptoms to ascertain relevance of these findings. Dictated by: Alexia Tejeda M.D. on 06/22/2020 at 13:09 Approved by: Alexia Tejeda M.D. on 06/22/2020 at 13:25
== END ==
PROVIDERS: Family Provider Family Medicine Geriatric Medicine; PCP Family Medicine; Referring Provider Orthopaedic Surgery; Visit Provider Orthopaedic Surgery
DX: M50.11 Cervical disc disorder with radiculopathy, high cervical region (principal); M48.02 Spinal stenosis, cervical region
CPT/HCPCS: 72141

== ENCOUNTER → 2021-02-14 15:41 | Outpatient (CLI) | payer MEDICARE, OTHER, SELFPAY ==
[2020-08-26 08:22] VITALS: BMI 28.3
--- NOTE | 2021-02-14 15:43 | DI.MRI.S_ITS ---
PROCEDURE: MR KNEE RT WO CON INDICATIONS: Chronic instability of knee, right knee TECHNIQUE: Noncontrast sagittal PD fast spin echo and T2 fast spin echo with fat saturation, sagittal 3-D FLASH with fat saturation; coronal T1 spin echo and PD fast spin echo with fat saturation, and axial PD fast spin echo with fat saturation through the knee. COMPARISON: None. FINDINGS: Image quality: Excellent. Menisci: Mild intrasubstance signal is seen in the body and posterior horn of the medial meniscus without extension to an articular surface, consistent with intrasubstance degeneration. No lateral meniscal tear is seen. There is no meniscal extrusion. Cruciate ligaments: The anterior and posterior cruciate ligaments appear intact. Medial structures: The medial collateral ligament appears intact. The semimembranosus tendon insertions and meniscocapsular junction appear intact. Visualized portions of the pes anserinus tendons appear normal. No abnormal bursal fluid. Lateral structures: The lateral collateral ligament, long and short heads of the biceps femoris tendon appear intact. The popliteus tendon appears intact. No signs of posterolateral corner injury. Iliotibial band appears normal. Anterior structures: The quadriceps and patellar tendons appear intact. Patellar alignment is normal. No femoral trochlear dysplasia or ventral trochlear prominence. No edema in the infrapatellar fat pad. Bones and cartilage: No bone marrow contusions or fractures. There is mild generalized cartilage thinning in the weight-bearing portion of the medial femorotibial compartment with tiny marginal osteophytes. Mild surface irregularity is seen in the articular cartilages at the lateral compartment and there are small marginal osteophytes. Full-thickness cartilage loss is seen at the lateral femoral trochlea with subchondral edema. Full-thickness cartilage loss is also seen at the median ridge and lateral facet of the patella with subchondral edema and marginal osteophyte formation. Joint space: There is a small knee joint effusion with mild synovial hypertrophy. No significant medial popliteal cyst is seen. There is mild generalized fatty infiltration of the musculature surrounding the knee. IMPRESSION: 1. Full-thickness cartilage loss in the lateral femoral trochlea and portions of the median ridge and lateral facet of the patella with subchondral edema. Mild grade 2 chondromalacia in the medial and lateral compartments. Tricompartmental marginal osteophyte formation. 2. Intact cruciate and collateral ligaments. No meniscal tear is seen. No acute trabecular bone injury. 3. Small joint effusion with mild synovial hypertrophy. Dictated by: Jeffry Driver M.D. on 02/14/2021 at 19:26 Approved by: Jeffry Driver M.D. on 02/14/2021 at 19:33
== END ==
PROVIDERS: Family Provider Family Medicine Geriatric Medicine; PCP Family Medicine; Referring Provider Physician Assistant Medical; Visit Provider Physician Assistant Medical
DX: M23.51 Chronic instability of knee, right knee (principal); M25.561 Pain in right knee; M94.261 Chondromalacia, right knee; M25.461 Effusion, right knee
CPT/HCPCS: 73721

== ENCOUNTER 2021-03-10 10:46 | Day surgery (SDC) | payer MEDICARE, OTHER, SELFPAY ==
[2020-08-26 08:22] VITALS: BMI 28.3
[2021-03-03 07:29] VITALS: BMI 26.4
[2021-03-10] VITALS (12 sets, daily range): BP systolic 152–182; BP diastolic 59–78; PULSE 67–89; RESP 14–18; TEMP 35.8–36.6; O2SAT 90–97; BMI 26.4
[2021-03-10] MEDS: LACTATED RINGERS 1,000 ML 42 ML IV ×2 (12:54→16:00)
--- NOTE | 2021-03-10 13:24 | PM.PREOP ---
Pre-operative Note COVID-19 COVID-19 status: Negative Result date/Date tested (Pos, Neg/Pending): 03/08/21 Interval Note History & Physical reviewed/Exam performed by Physician: Yes Changes to H&P: No
[2021-03-10] MEDS: CEFAZOLIN 1 GM VIAL 2 GM IV (14:30)
--- NOTE | 2021-03-10 14:58 | SUR.OPER ---
Supine on padded OR bed, head on gel doughnut,towel roll between shoulder blades. arms padded and tucked at sides, legs uncrossed, safety belt at thigh, tape over blanket over lower legs.tape from shoulder to foot of bed to provide shoulder traction towards foot
[2021-03-10] MEDS: BUPIVACAINE 0.25% (PF) 30 ML, EPINEPHrine 0.3 MG INJ (16:07)
--- NOTE | 2021-03-10 16:27 | DI.RAD.S_ITS ---
PROCEDURE: XR CERVICAL SPINE 2V OR 3V INDICATIONS: C4-5, C5-6 ACDF TECHNIQUE: 2 fluoroscopic view(s) of the cervical spine were acquired. COMPARISON: [facility] Outside Film, CT, CT CERVICAL SPINE WITHOUT CONTRAST, 06/05/2020, 15:19. FINDINGS: C5-C6 ACDF. Hardware projects in the expected location. Endotracheal tube is seen. Soft tissues: No prevertebral soft tissue swelling. IMPRESSION: Expected postoperative appearance. Dictated by: Reinier Burrell M.D. on 03/10/2021 at 17:12 Approved by: Reinier Burrell M.D. on 03/10/2021 at 17:14
--- NOTE | 2021-03-10 16:44 | PM.OP.1 ---
Operative Date/Time/Diagnoses Date of procedure: 03/10/21 Time of procedure: 13:00 Pre-op diagnosis: 1. C4-5, C5-6 spinal stenosis 2. C4-5, C5-6 spondylosis with radiculopathy Post-op diagnosis: same Procedure & Clinicians Procedure: 1. C4-5, C5-6 anterior cervical diskectomy and fusion 2. C4-5, C5-6 anterior interbody cage placement 3. C4-5, C5-6 anterior instrumentation with plate and screw placement in C5-C6 and C7 vertebrae 4. Utilization of microsurgical technique and operating microscope Same procedure as scheduled: Yes Indications: Patient has been having chronic neck pain and worsening cervical radiculopathy. Patient failed multiple conservative management with worsening pain weakness and numbness in her upper extremity. Patient has been having difficulty performing activity of daily living. After discussing risks benefits of treatment options, patient elected proceed with surgery. Surgeon: Anna Juarez Macaroni Maker: Kate Haider Click Yes if Unassisted: No Anesthesia Type: General Operative Notes Closure Type: primary Specimen(s): none sent Prosthetic devices, grafts, tissues, transplants, or devices: Globus Extend Plate, PEEK cage Estimated Blood Loss (mL): 10 Blood products transfused: none Procedure in detail: Patient was seen in the preoperative area. Risks and benefits of the surgery was discussed with the patient. Operative consent was obtained and placed in the chart. Patient was then taken to the operative room. Prophylactic antibiotic was given less than 0.5 hr prior to skin incision. General anesthesia was administered. Patient was placed into a supine position on her radiolucent table. Bilateral shoulders were taped down to allow proper C-arm imaging. Anterior cervical area was prepped and draped in a sterile fashion. Time-out was performed at this time. Using lateral C-arm imaging, the level between C4 and C6 was identified and marked on patient's neck. A oblique incision from midline towards medial border of sternocleidomastoid muscle was made. The platysma muscle was incised in line with skin incision. Metzenbaum scissor was used to develop the plane between the medial border of sternocleidomastoid d and the strap muscles medially. The carotid sheath and its contents were identified and protected behind the hand-held retractor during the entire case. The plane between the carotid sheath and strap muscles was developed with Metzenbaum scissors. Dissection was made down to the level of the anterior cervical fascia. Longus colli muscle was incised on the anterior aspect of vertebral bodies bilaterally from C4-6. Spinal needle was placed into the C5-6 disc space and confirmed with lateral C-arm imaging. Using microsurgical technique and operative microscope, anterior cervical diskectomy was performed at C4-5, C5-6 level. This was done by removing the disc material, removing the anterior and posterior osteophytes posterior longitudinal ligaments along with performing bilateral foraminotomies at both levels. Patient was found to have severe central and foraminal stenosis at both levels. Patient's stenosis was fully decompressed after decompression was completed. After the diskectomy was completed, 2 anterior interbody cages were obtained. The cages were packed with globus via cell bone grafting material. One cage each along with the bone grafting material was then packed into the interbody spaces from C4-C6 with one cage into each interbody level. After the cages were placed, the anterior cervical plate was stabilized to the C4-6 vertebrae using 2 screws at each each level. Total 6 screws were placed. After confirming placement of the hardware with AP and lateral C-arm imaging, the screws were locked into the plate using the locking mechanism and torque limiting screwdriver. After the hardware was placed and confirmed with AP and lateral C-arm imaging, the wound was irrigated with sterile normal saline. The platysma muscle and the subcutaneous tissue was closed with 2-0 Vicryl. The skin was closed with 4-0 Monocryl and Steri-Strips. Patient tolerated the procedure well. Patient was transferred recovery room in stable condition. There were no complications. Complications: none Post-operative Condition: stable Disposition: PACU Plan for aftercare: Admit to inpatient hospital
[2021-03-10] MEDS: HYDROMORPHONE 2 MG INJ IV (16:47)
[2021-03-10] MEDS: hydrOXYzine pamoate 25 MG CAPSULE PO ×2 (17:58→23:09)
[2021-03-10] MEDS: OXYCODONE IR 5 MG TABLET PO ×2 (17:58→23:09)
[2021-03-10] MEDS: ACETAMINOPHEN 325 MG TABLET 650 MG PO (17:58)
[2021-03-10] MEDS: SODIUM CHLORIDE 0.9% 1,000 ML 100 ML IV (17:58)
--- NOTE | 2021-03-10 18:27 | PC.NURSE ---
Addendum entered by Jacki Heck R.N. 03/10/21 20:57: Up to commode with minimal assistance to void. Mobilizes well. Soft collar in place. Admits to full sensation to BL UE's. Arthritic nodules to hands, palpable radial pulses BL. Denies numbness. Addendum entered by Jacki Heck R.N. 03/10/21 19:55: Pt reports shoulder pain improved. States majority of pain now right side of neck. Pt has ice to site. Administered iv dilaudid as per emar. I.S. provided to pt and pt verbalizes is familiar with this device and how to perform, but states does not feel up to using this now. Trial of room air 90% after being medicated. Returned to 2L per nc with oxygen saturation level rising to 96%. Original Note: Pt to room 206 @ 1720 awake, alert, conversant. 02 2L nc saturation per continuous monitor 96%. Admits to BL shoulder pain and lower posterior neck pain 9/10. Warm blanket placed around shoulders, ice pack provided to neck and meds as per emar. Surgical dressing to anterior neck is dry and intact. Soft collar in place. Pt is able to manage own airway and secretions. Able to swallow sips water, bites applesauce and take meds whole one at a time without difficulty. Head of bed is upright. Oriented to call light and bed controls.
[2021-03-10] MEDS: HYDROMORPHONE 0.5 MG INJ 0.2 MG IV (19:27)
[2021-03-10] MEDS: SENNOSIDES 8.6 MG TABLET 17.2 MG PO (20:35)
[2021-03-10] MEDS: PANTOPRAZOLE DR 20 MG TABLET PO (20:35)
[2021-03-10] MEDS: HYDROMORPHONE 2 MG TABLET 4 MG PO (20:35)
[2021-03-10] MEDS: DOCUSATE 100 MG CAPSULE PO (20:35)
[2021-03-10] MEDS: CEFAZOLIN 1 GM VIAL IV (22:46)
[2021-03-11] VITALS: BP 143/61; PULSE 79; RESP 19; TEMP 36.5; O2SAT 98
[2021-03-11] MEDS: ACETAMINOPHEN 325 MG TABLET 650 MG PO (00:09)
[2021-03-11] MEDS: HYDROMORPHONE 0.5 MG INJ 0.2 MG IV (00:09)
[2021-03-11] MEDS: OXYCODONE IR 5 MG TABLET PO ×2 (03:03→07:38)
[2021-03-11 04:00] VITALS: BP 153/63; PULSE 67; RESP 18; TEMP 36.6; O2SAT 97
[2021-03-11] MEDS: hydrOXYzine pamoate 25 MG CAPSULE PO (04:03)
[2021-03-11] MEDS: SODIUM CHLORIDE 0.9% 1,000 ML 100 ML IV (04:03)
[2021-03-11] MEDS: CEFAZOLIN 1 GM VIAL IV (05:57)
[2021-03-11 07:30] VITALS: BP 154/59; PULSE 83; RESP 16; TEMP 35.9; O2SAT 96
[2021-03-11 08:30] VITALS: O2SAT 91
[2021-03-11] MEDS: lisinopriL 20 MG TABLET 40 MG PO (08:46)
[2021-03-11] MEDS: PANTOPRAZOLE DR 20 MG TABLET PO (08:46)
[2021-03-11] MEDS: DOCUSATE 100 MG CAPSULE PO (08:46)
[2021-03-11] MEDS: HYDROMORPHONE 2 MG TABLET 4 MG PO (08:46)
[2021-03-11] MEDS: AMLODIPINE 5 MG TABLET 10 MG PO (08:46)
[2021-03-11] MEDS: METOPROLOL ER 50 MG TABLET 100 MG PO (08:46)
--- NOTE | 2021-03-11 09:00 | PT.IIE ---
Current Diagnoses Other spondylosis with myelopathy, cervical region (03/10/21) Surgery Performed Operation Date: 03/10/21 12:45 Actual Procedures p C5-6, C6-7 ACDF w. anterior instrumentation - Anna Juarez MD Surgical History (Last Reviewed 03/11/21 @ 10:19 by Kate Haider PA-C) Anesthesia History of tonsillectomy Status post appendectomy Status post surgery (07/01/15) Medical History (Last Reviewed 03/11/21 @ 10:19 by Kate Haider PA-C) Chronic back pain (~2013) Depression GERD (gastroesophageal reflux disease) Hypertension Hypertension Lumbar stenosis with neurogenic claudication Neutrophilia (~2009) Osteoarthritis Postmenopausal Strain of lumbar region Toe infection (~2017) Physical Therapy Inpatient Evaluation/Re-Eval M1 PT/OT-IP Prior Functional Status Start: 03/11/21 12:05 Freq: NEEDED Status: Active Protocol: Document 03/11/21 10:20 [facility] (Rec: 03/11/21 12:24 [facility] [id number]) Medical Review Prior Functional Status Communication independent Activities of Daily Living and IADL's Pt states was able to do ADL and IADL needs but with difficulty. Social History Household Members family Living Arrangements House Number of Floors (Floors) One Floor Number of Stairs To Enter/Railing? 6 steps with wide rails Home Environment Standard Height Toilet,Tub/ Shower Doors Home Equipment Four Wheel Walker,Shower Seat without Backrest,Grab Bars In Shower Additional Social History Comment Pt states her 28 year old grandson will be staying with her. M2 PT-IP Current Condition Start: 03/11/21 12:53 Freq: NEEDED Status: Active Protocol: Document 03/11/21 09:00 AB (Rec: 03/11/21 13:04 AB [email or web address]) Physical Therapy Current Condition Current Condition Evaluation Date 03/11/21 Treatment Diagnosis C4-5 C5-6 ACDF; difficulty in walking Onset Date 03/10/21 M3 PT-IP Subjective Start: 03/11/21 12:53 Freq: NEEDED Status: Active Protocol: Document 03/11/21 09:00 AB (Rec: 03/11/21 13:04 AB [email or web address]) Subjective Physical Therapy Visit Type Type Initial Evaluation Visit Start Time 09:00 Visit Stop Time 09:43 Total Visit Minutes 43 Number of BEHAVIORAL PEDIATRICIAN Visits 0 Physical Therapy Visit Comments Patient Comments pt is agreeable to do PT Therapy Pain Assessment Pain When Pain Assessed At Rest Pain Present Pain Present Pain Reported Location Neck Intensity 7 Scale Used Numeric (0 - 10) Pain Management Techniques Modification of Treatment,Re- positioning,Timing of Activity with Medications M4 PT-IP Mobility and Gait Start: 03/11/21 12:53 Freq: NEEDED Status: Active Protocol: Document 03/11/21 09:00 AB (Rec: 03/11/21 13:04 AB [email or web address]) PT-Bed Mobility Assessment Rolling Type of Rolling Log Rolling Level of Assist Standby Assistance Supine to Sit Supine to Sit Standby Assistance PT-Transfer Assessment Sit to and From Stand Sit to and from Stand Standby Assistance,Use of Upper Extremities Equipment Transfer Assistive Device None,Gait Belt Orthotic/Prosthetic Devices or Brace: Yes Transfers Transfer Destination Chair Transfer Technique Stand Step Pivot Transfer Ability Level of Assist Standby Assistance,Contact Guard Assistance,1 Person Assistance,Use of Upper Extremities Comments Mobility Comments edcuated pt regarding cervical precautions and log roll bed mobility. pt completed supine to sit log roll SBA. completed sit to stand SBA and ambulated in room without AD CGA ~ 20 ft and presents with unsteady antalgic gait. pt stated that she had back problems with h/o surgery. presents with scoliosis and has pelvic depression on R with increase lateral trunk lean. Assessed ambulation using SPC and pt completed SBA to occasional CGA ~ 125 ft. completed up/down steps holding on to 1 rail with B hands SBA to CGA. pt ambulated back to her room using SPC SBA. agreed to stay up on chair. call light and table placed within reach. Gait Assessment Gait Gait Assistance Required: Standby Assistance,Contact Guard Assist Distance (Feet) 125 Able to Maintain Weight Bearing Status Yes During Gait Assistive Devices Assistive Device None,Gait Belt,Straight Cane Orthotic/Prosthetic Devices or Brace: Yes Gait Deviations General Gait Pattern Antalgic,Decreased Stride Length,Decreased Feet Clearance,Lateral Trunk Lean Factors Limiting Gait Function Factors Limiting Gait Function Decreased Activity Tolerance, Decreased Strength,Limited Range of Motion,Pain,Poor Balance,Poor Safety Awareness Stair Climbing Assessment Evaluation Level of Assist On Stairs Standby Assistance,Contact Guard Assistance Devices Stair Climbing Assistive Devices Left Railing,Right Railing Technique/Endurance Stair Climbing Direction Ascend and Descend Stair Climbing Technique Step to Step Number of Steps Climbed 3 Query Text: Stair Climbing Set # Repetitions (reps) 2 Comments Stair Climbing Comments pls refer to mobility section for details PT-Balance Assessment Sitting Balance and Reactions Static Sitting Balance Ability Good Dynamic Sitting Balance Ability Good Standing Balance and Reactions Static Standing Balance Ability Fair Dynamic Standing Balance Ability Fair Device Used SPC M5 PT-IP Objective Assessments Start: 03/11/21 12:53 Freq: NEEDED Status: Active Protocol: Document 03/11/21 09:00 AB (Rec: 03/11/21 13:04 AB [email or web address]) Orientation Orientation/Cognition Level of Alertness Alert Orientation Name,Place,Situation Language Function Ability No Deficits Noted Safety Awareness Decreased Safety Awareness Memory Description No Deficits Noted Gross Range of Motion Lower Extremity ROM Assessment Within Functional Limits Strength Lower Extremity Strength Assessment Right Impaired Hip 3+/5 Knee 3+/5 Sensation Assessment Sensation Gross Sensation WNL Muscle Tone Muscle Tone WNL Yes M6 PT-IP Treatment Start: 03/11/21 12:53 Freq: NEEDED Status: Active Protocol: Document 03/11/21 09:00 AB ([facility]11/21 [email or web address] Treatment Education Education Provided Precautions,Weight Bearing Status,Post-Op Packet,Safety M7 PT-IP Assessment and Plan Start: 03/11/21 12:53 Freq: NEEDED Status: Active Protocol: Document 03/11/21 09:00 AB (Rec: 03/11/21 13:04 [email or web address]) PT Summary Assessment and Plan Potential Rehabilitation Potential Good Status of Condition at Evaluation Stable Summary Impairments Pain,ROM,Strength,Balance, Coordination,Sensation,Tone, Cognition,Bed Mobility, Transfers,Gait,Activity Tolerance Assessment Summary pt requiring SBA to CGA with mobility and recommending use of SPC at this time for stability and safety with transfers and ambulation. Pt agreed. pt plans to go home and will have her family to assist her at home. Pt may go home when medically stable. Goals Bed Mobility Goal Independent Transfer Goal Independent,Cane Gait Goal Independent,Cane Gait Distance 200 Other Goals ambulation without AD 150 ft SBA up/down 6 steps 1 rail mod I Days to Meet Goals 3 Frequency of Treatment Frequency Of Treatment Twice a Day Treatment Plan Physical Therapy Treatment Plan Bed Mobility Training,Transfer Training,Gait Training, Therapeutic Exercise,Balance Retraining,Post Op Education, Discharge Planning,Hot or Cold Pack,Neuromuscular Re-ed, Coordination Retraining,Manual Therapy Precautions Cervical Spine Precautions Soft Collar for Comfort,No Heavy Lifting,Log Roll Recommendations To Nursing Amount of Assist Needed 1 Person Assist Discharge Recommendations PT Discharge Recommendations Home with Assistance Transportation Needs at Discharge Private Vehicle
[2021-03-11 09:19] VITALS: PULSE 85
--- NOTE | 2021-03-11 10:17 | P.DS_ITS ---
History of Present Illness History of Present Illness Date Patient Seen: 03/11/21 Time Patient Seen: 10:17 Chief complaint: Neck pain s/p anterior cervical fusion Narrative: The patient is complaining of moderate neck pain this morning. She has baseline numbness and tingling in her right 3rd 4th and 5th fingers, unchanged from surgery. Denies any nausea or vomiting. No fevers, chills, night sweats. She is overall doing well and would like to be discharged home today. Discharge Providers Provider Discharge Date: 03/11/21 Primary care physician: Francisco Jiang DO Consults: 03/10/21 17:38 Consult to Occupational Therapy Evaluate & Treat Comment: Physician Instructions: Evaluate and treat Consult to Physical Therapy Evaluate & Treat Comment: Physician Instructions: Evaluate and Treat Discharge provider: Kate Haider PA-C Summary Hospital Course Discharge Diagnosis: 1. C4-5, C5-6 spinal stenosis 2. C4-5, C5-6 spondylosis with radiculopathy Hospital Course: Date of procedure: 03/10/21 Time of procedure: 13:00 Procedure & Clinicians Procedure: 1.? C4-5, C5-6 anterior cervical diskectomy and fusion 2.? C4-5, C5-6 anterior interbody cage placement 3.? C4-5, C5-6 anterior instrumentation with plate and screw placement in C5-C6 and C7 vertebrae 4.? Utilization of microsurgical technique and operating microscope Same procedure as scheduled: Yes Indications: Patient has been having chronic neck pain and worsening cervical radiculopathy. Patient failed multiple conservative management with worsening pain weakness and numbness in her upper extremity.? Patient has been having difficulty performing activity of daily living.? After discussing risks benefits of treatment options, patient elected proceed with surgery. Surgeon: Anna Juarez Asbestos Cement Sheet Supervisor: Kate Haider Click Yes if Unassisted: No Anesthesia Type: General Operative Notes Closure Type: primary Specimen(s): none sent Prosthetic devices, grafts, tissues, transplants, or devices: Globus Extend Plate, PEEK cage Estimated Blood Loss (mL): 10 Blood products transfused: none Exam Vital Signs (past 8 hours): - 03/11/21 04:00 03/11/21 07:30 03/11/21 08:30 Temperature 97.8 F 96.7 F L Pulse Rate 67 83 Respiratory Rate 18 16 Blood Pressure 153/63 H 154/59 H Pulse Oximetry 97 96 91 10/30/21 09:19 Temperature Pulse Rate 85 Respiratory Rate Blood Pressure Pulse Oximetry Oxygen Delivery Method Room Air Oxygen Flow Rate 2 Narrative Exam Narrative: 75-year-old female, resting comfortably in her chair, no acute distress. Dressing is clean, dry, intact. Bilateral upper extremity motor functions are grossly intact. She is grossly intact to light touch in her upper extremities, although the right is decreased as compared to left in her 4th and 5th fingers. This is her baseline. [facility] Medical History Chronic back pain (~2013) Depression GERD (gastroesophageal reflux disease) Hypertension Hypertension Lumbar stenosis with neurogenic claudication Neutrophilia (~2009) Osteoarthritis Postmenopausal Strain of lumbar region Toe infection (~2017) Surgical History Anesthesia History of hysteroscopy History of lumbar fusion (10/07/18) History of tonsillectomy Hx of lumbar discectomy (02/13/18) S/P lumbar spinal fusion Status post appendectomy Status post surgery (07/01/15) Family History Father Cancer Grandfather Stroke Grandmother Cancer Social History household members: family Smoking Status: Current some day smoker alcohol intake: current Discharge Assessment & Plan Assessment and Plan Assessment: Stable status post cervical fusion, anterior Plan of Treatment: -work with OT this morning -continue with current pain regimen -DC home today when cleared by OT. She is trying to catch the [employer] [facility] to [facility]. Discharge Plan Discharge Plan Patient Disposition: Home Discharge orders & Medications Discharge Orders: Discharge (Order); Ordered 03/11/21 Ordered By: Kate Haider Prescriptions: New acetaminophen 500 mg capsule 500 mg PO Q4H MDD Max 6 tabs per day PRN (Reason: Pain, Mild (1-3)) Qty: 90 RF: 0 docusate sodium 100 mg Capsule 100 mg PO BID PRN (Reason: Constipation from narcotic pain meds) Qty: 30 RF: 0 hydroxyzine pamoate 25 mg Capsule 25 mg PO Q4HR PRN (Reason: Spasms, pain, nausea) Qty: 60 RF: 0 oxycodone 5 mg Tablet 5 mg PO Q3HR PRN (Reason: Pain, Moderate (4-6)) Qty: 42 RF: 0 Continued omeprazole 20 MG capsule,delayed release(DR/EC) 20 mg PO BID Qty: 0 RF: 0 lisinopril 40 mg Tablet 40 mg PO DAILY RF: 0 metoprolol succinate 100 mg Tablet Extended Release 24 Hr 100 mg PO DAILY RF: 0 aspirin 325 mg Tablet 325 mg PO DAILY PRN (Reason: Headache) RF: 0 amlodipine [Norvasc] 10 mg Tablet 10 mg PO DAILY RF: 0 hydromorphone 2 mg Tablet 4 mg PO BID RF: 0 trazodone 100 mg tablet 100 mg PO DAILY RF: 0 Follow up/Referrals: Anna Juarez MD [Physician] - (10-14 days for postoperative visit) Francisco Jiang DO [Primary Care Provider] - Diet/Activity/Treatments Diet: Diet as Tolerated and Regular Other treatments: Medications: -OTC Tylenol 500 mg 1 tablet every 4 hours as needed for pain/fever. Max 6 tablets per day. -Oxycodone 5 mg take 1-2 tablets every 4 hours as needed for moderate-severe pain (narcotic pain medication). -Dilaudid 2 mg 1 tab every 6 hours as needed for severe pain -Vistaril (hydroxyine) 25mg 1 tab every 4 hours as needed for spasms/pain/nausea. -As needed medications: -Ducolax and /or MiraLax as needed for constipation from narcotic pain medications. -Pepcid AC as needed for stomach upset. Dressing/Wound care: -Keep dressing in place until postoperative follow-up office visit. -Okay to shower. Keep wound out of direct water stream. Can use PressNSeal plastic wrap to protect from water. No soaking or submerging until all the scabs fall off (approximately 6 weeks). -Please call the office if dressing becomes wet, soiled, or saturated. Activities: -Limit bending, lifting, twisting. -Continue with home exercises as directed by your physical therapist. -Ice your incision as needed for pain/inflammation/swelling. Protect your skin with a folded pillowcase. Follow-up: -Follow-up with your surgeon or PA in the office in 10-14 days after surgery. -Follow-up with your surgeon 6 weeks postoperatively. Call the office if you have chest pain, shortness of breath, significant swelling that will not resolve with elevating, fever over 101?, significantly worsening pain. [facility]: [phone] Skin/Wound/Dressing Care Report to your healthcare provider any signs of infection, such as:: chills, fever, night sweats, unusual drainage and unusual redness Visit Report/Discharge Packet Instructions: DI for Anterior Cervical Discectomy and Fusion Stand Alone Forms: Surgery Discharge Discharge Data Primary Care Provider: Francisco Jiang Attending Provider: Anna Juarez VTE Deep Vein Thrombosis/Pulmonary Embolism Present on Admission: No
--- NOTE | 2021-03-11 10:46 | OT.IP.EVAL ---
Current Diagnoses Other spondylosis with myelopathy, cervical region (03/10/21) Surgery Performed Operation Date: 03/10/21 12:45 Actual Procedures p C5-6, C6-7 ACDF w. anterior instrumentation - Anna uJarez MD Past Medical History (Last Reviewed 03/11/21 @ 10:19 by Kate Haider PA-C) Chronic back pain (~2013) Depression GERD (gastroesophageal reflux disease) History of hysteroscopy History of lumbar fusion (10/07/18) Hx of lumbar discectomy (02/13/18) Hypertension Hypertension Lumbar stenosis with neurogenic claudication Neutrophilia (~2009) Osteoarthritis Postmenopausal S/P lumbar spinal fusion Strain of lumbar region Toe infection (~2017) Surgical History (Last Reviewed 03/11/21 @ 10:19 by Kate Haider PA-C) Anesthesia History of hysteroscopy History of lumbar fusion (10/07/18) History of tonsillectomy Hx of lumbar discectomy (02/13/18) S/P lumbar spinal fusion Status post appendectomy Status post surgery (07/01/15) Occupational Therapy Inpatient Evaluation/Re-Eval M1 PT/OT-IP Prior Functional Status Start: 03/11/21 12:05 Freq: NEEDED Status: Active Protocol: Document 03/11/21 10:20 [facility] (Rec: 03/11/21 12:24 [facility] [id number]) Medical Review Prior Functional Status Communication independent Activities of Daily Living and IADL's Pt states was able to do ADL and IADL needs but with difficulty. Social History Household Members family Living Arrangements House Number of Floors (Floors) One Floor Number of Stairs To Enter/Railing? 6 steps with wide rails Home Environment Standard Height Toilet,Tub/ Shower Doors Home Equipment Four Wheel Walker,Shower Seat without Backrest,Grab Bars In Shower Additional Social History Comment Pt states her 28 year old grandson will be staying with her. M2 OT-IP Current Condition Start: 03/11/21 12:05 Freq: Status: Active Protocol: Document 03/11/21 10:20 [facility] (Rec: 03/11/21 12:24 [facility] [id number]) Occupational Therapy Current Condition Current Condition Evaluation Date 03/11/21 Treatment Diagnosis s/p C5-6, C6-7 ACDF Diagnosis Onset Date 03/10/21 Post Operative Precautions Cervical Spine Precautions Soft Collar for Comfort,No Heavy Lifting,Log Roll M3 OT- IP Subjective and Pain Start: 03/11/21 12:05 Freq: Status: Active Protocol: Document 03/11/21 10:20 [facility] (Rec: 03/11/21 12:24 [facility] [id number]) OT- Subjective Occupational Therapy Visit Type Type Initial Evaluation Visit Start Time 10:20 Visit Stop Time 10:46 Total Visit Minutes 26 Occupational Therapy Visit Comments Patient Comments Pt agreed to work with OT. Patient/Caregiver Goals TO go home. OT Pain Assessment Pain When Pain Assessed During Mobility Pain Present Pain Present Pain Reported Location Bilateral Shoulder Intensity 6 Scale Used Numeric (0 - 10) M4 OT- IP ADL's Start: 03/11/21 12:05 Freq: Status: Active Protocol: Document 03/11/21 10:20 [facility] (Rec: 03/11/21 12:24 [facility] [id number]) OT [id number] Comments OT Self-Feeding Comments Pt states did not eat much. Went over information for swallowing after ACDF with pt. OT ADL-Grooming General Evaluation Grooming Ability Standby Assistance Areas Needing Assistance Retrieving/Set-up of Grooming Items Comments OT Grooming Comments Pt able to civil transportation engineer front of the sink with SPC. OT ADL-Oral Care Comments Oral Care Comments Educated best to spit into a cup versus bend her neck to spot into the sink to best follow her cervical precautions. OT ADL-Dressing General Eval Lower Body Dressing Ability Minimal Assistance Comments OT Dressing Comments Pt having difficulty to get her underwear over her feet and educated to use a ladies locker room attendant and sock aid to assist for LB dressing needs. LB dressing equipment issued to pt. OT ADL-Toileting Comments OT Toileting Comments Pt not having to go. Educated for pt to be mindful of her head positioning while she is doing her pericare needs. In addition to wear pads and use of wet wipes can be helpful. OT ADL-Bathing Comments OT Bathing Comments Pt states to shower at home. Educated best to have someone present and to shower from chest down. M5 OT- IP IADL's Start: 03/11/21 12:05 Freq: Status: Active Protocol: Document 03/11/21 10:20 [facility] (Rec: 03/11/21 12:24 [facility] [id number]) OT-Instrumental Activities of Daily Living Home Safety Awareness Home Safety Comments Pt's grandson to be staying with her to assist pt for all her needs. M6 OT- IP Functional Cognition Start: 03/11/21 12:05 Freq: Status: Active Protocol: Document 03/11/21 10:20 [facility] (Rec: 03/11/21 12:24 [facility] [id number]) Cognitive Factors Limiting Selfcare Function Cognitive Ability Level of Alertness Alert Patient Orientation Name,Age,Birthday,Month,Date, Year,Day of Week,Place, Situation Attention Span Ability Capable of Focused Attention, Capable of Sustained Attention Ability to Follow Commands Able to Follow Multi-Step Commands Memory Description No Deficits Noted Safety Awareness Underestimates Need for Assistance Cognitive Comments Cognitive Assessment Comments Pt a little impulsive and just needing initial cue to slow down. M7 OT- IP Mobility and Balance Start: 03/11/21 12:05 Freq: Status: Active Protocol: Document 03/11/21 10:20 [facility] (Rec: 03/11/21 12:24 [facility] [id number]) OT-Transfer Assessment Sit to and From Stand Sit to and from Stand Standby Assistance Transfers Transfer Ability Standby Assistance Technique Transfer Destination Chair Transfer Technique Stand Step Pivot Devices Transfer Assistive Devices Gait Belt,Straight Cane OT- Gait Assessment Comments Gait Ability Comments Pt able to use SPC in the room with good safety. OT- Balance Assessment Sitting Balance and Reactions Static Sitting Balance Ability Normal Dynamic Sitting Balance Ability Good Standing Balance and Reactions Static Standing Balance Ability Good Dynamic Standing Balance Ability Fair M8 OT- IP Objective Assessments Start: 03/11/21 12:05 Freq: Status: Active Protocol: Document 03/11/21 10:20 [facility] (Rec: 03/11/21 12:24 [facility] [id number]) OT-Muscle Tone Assessment Muscle Tone WNL Yes M9 OT- IP Assessment and Plan Start: 03/11/21 12:05 Freq: Status: Active Protocol: Document 03/11/21 10:20 [facility] (Rec: 03/11/21 12:24 [facility] [id number]) OT Summary Assessment and Plan Potential Rehabilitation Potential Good Analytic Complexity at Evaluation Low Summary OT Impairments Pain,Functional Mobility, Toileting,Bathing,Shower Transfers Progress Towards Goals Progressing Toward Goals Assessment Summary Pt low complexity and main barriers are step, dressing and showering and IADl needs. Pt's grandson to stay with the pt to assist for her needs. Goals Dressing Goal Standby Assistance Toileting Goal Independent Bathing Goal Independent Toilet Transfer Goal Standby Assistance Shower Transfer Goal Standby Assistance Days to Meet Goals 26 Frequency of Treatment Frequency Of Treatment Once a Day Treatment Plan OT Treatment Plan ADL Training,Functional Mobility,Patient/Family Education,Discharge Planning Other Treatment Recommendations and Next Shower if still here. Treatment Focus Discharge Recommendations OT Discharge Recommendations Home with Assistance Transportation Needs at Discharge Private Vehicle
--- NOTE | 2021-03-11 11:26 | PC.NURSE ---
Day shift: Paperwork signed and all questions answered. Soft collar in place and tolerated. Dressing remains CDI. CMS intact and good cap refill BUE's. Pain well controlled per JUL. Pt has MD scripts and will stop to get them filled prior to ferry ride home. Has priority boarding pass as well. Taken to car that her Son is driving. Taken in WC by this real estate underwriter and she tolerated that well. Left unit at approx 1120.
--- NOTE | 2021-03-11 12:33 | OT.IP.EVAL ---
Current Diagnoses Other spondylosis with myelopathy, cervical region (03/10/21) Surgery Performed Operation Date: 03/10/21 12:45 Actual Procedures p C5-6, C6-7 ACDF w. anterior instrumentation - Anna Juarez MD Past Medical History (Last Reviewed 03/11/21 @ 10:19 by Kate Haider PA-C) Chronic back pain (~2013) Depression GERD (gastroesophageal reflux disease) History of hysteroscopy History of lumbar fusion (10/07/18) Hx of lumbar discectomy (02/13/18) Hypertension Hypertension Lumbar stenosis with neurogenic claudication Neutrophilia (~2009) Osteoarthritis Postmenopausal S/P lumbar spinal fusion Strain of lumbar region Toe infection (~2017) Surgical History (Last Reviewed 03/11/21 @ 10:19 by Kate Haider PA-C) Anesthesia History of hysteroscopy History of lumbar fusion (10/07/18) History of tonsillectomy Hx of lumbar discectomy (02/13/18) S/P lumbar spinal fusion Status post appendectomy Status post surgery (07/01/15) Occupational Therapy Inpatient Evaluation/Re-Eval M1 PT/OT-IP Prior Functional Status Start: 03/11/21 12:05 Freq: NEEDED Status: Active Protocol: Document 03/11/21 10:20 [facility] (Rec: 03/11/21 12:24 [facility] [id number]) Medical Review Prior Functional Status Communication independent Activities of Daily Living and IADL's Pt states was able to do ADL and IADL needs but with difficulty. Social History Household Members family Living Arrangements House Number of Floors (Floors) One Floor Number of Stairs To Enter/Railing? 6 steps with wide rails Home Environment Standard Height Toilet,Tub/ Shower Doors Home Equipment Four Wheel Walker,Shower Seat without Backrest,Grab Bars In Shower Additional Social History Comment Pt states her 28 year old grandson will be staying with her. M2 OT-IP Current Condition Start: 03/11/21 12:05 Freq: Status: Active Protocol: Document 03/11/21 10:20 [facility] (Rec: 03/11/21 12:24 [facility] [id number]) Occupational Therapy Current Condition Current Condition Evaluation Date 03/11/21 Treatment Diagnosis s/p C5-6, C6-7 ACDF Diagnosis Onset Date 03/10/21 Post Operative Precautions Cervical Spine Precautions Soft Collar for Comfort,No Heavy Lifting,Log Roll M3 OT- IP Subjective and Pain Start: 03/11/21 12:05 Freq: Status: Active Protocol: Document 03/11/21 10:20 [facility] (Rec: 03/11/21 12:24 [facility] [id number]) OT- Subjective Occupational Therapy Visit Type Type Initial Evaluation Visit Start Time 10:20 Visit Stop Time 10:46 Total Visit Minutes 26 Occupational Therapy Visit Comments Patient Comments Pt agreed to work with OT. Patient/Caregiver Goals TO go home. OT Pain Assessment Pain When Pain Assessed During Mobility Pain Present Pain Present Pain Reported Location Bilateral Shoulder Intensity 6 Scale Used Numeric (0 - 10) M4 OT- IP ADL's Start: 03/11/21 12:05 Freq: Status: Active Protocol: Document 03/11/21 10:20 [facility] (Rec: 03/11/21 12:24 [facility] [id number]) OT [id number] Comments OT Self-Feeding Comments Pt states did not eat much. Went over information for swallwing after ACDF with pt. OT ADL-Grooming General Evaluation Grooming Ability Standby Assistance Areas Needing Assistance Retrieving/Set-up of Grooming Items Comments OT Grooming Comments Pt able to bellstand attendant front of the sink with SPC. OT ADL-Oral Care Comments Oral Care Comments Educated best to spit into a cup versues bend her neck to spot into the sink to best follow her cervical precautions. OT ADL-Dressing General Eval Lower Body Dressing Ability Minimal Assistance Comments OT Dressing Comments Pt having difficulty to get her underwear ove her feet and educated to use a ship's electronic warfare officer and sock aid to assist for LB dressing needs. LB dressing equipment issued to pt. OT ADL-Toileting Comments OT Toileting Comments Pt not having to go. Educated for pt to be mindful of her head positioning while she is doing her pericare needs. In addition to wear pads and use of wet wipes can be helpful. OT ADL-Bathing Comments OT Bathing Comments Pt states to shower at home. Educated best to have someone present and to shower from chest down. M5 OT- IP IADL's Start: 03/11/21 12:05 Freq: Status: Active Protocol: Document 03/11/21 10:20 [facility] (Rec: 03/11/21 12:24 [facility] [id number]) OT-Instrumental Activities of Daily Living Home Safety Awareness Home Safety Comments Pt's grandson to be staying with her to assist pt for all her needs. M6 OT- IP Functional Cognition Start: 03/11/21 12:05 Freq: Status: Active Protocol: Document 03/11/21 10:20 [facility] (Rec: 03/11/21 12:24 [facility] [id number]) Cognitive Factors Limiting Selfcare Function Cognitive Ability Level of Alertness Alert Patient Orientation Name,Age,Birthday,Month,Date, Year,Day of Week,Place, Situation Attention Span Ability Capable of Focused Attention, Capable of Sustained Attention Ability to Follow Commands Able to Follow Multi-Step Commands Memory Description No Deficits Noted Safety Awareness Underestimates Need for Assistance Cognitive Comments Cognitive Assessment Comments Pt a little impulsive and just needing initial cue to slow down. M7 OT- IP Mobility and Balance Start: 03/11/21 12:05 Freq: Status: Active Protocol: Document 03/11/21 10:20 [facility] (Rec: 03/11/21 12:24 [facility] [id number]) OT-Transfer Assessment Sit to and From Stand Sit to and from Stand Standby Assistance Transfers Transfer Ability Standby Assistance Technique Transfer Destination Chair Transfer Technique Stand Step Pivot Devices Transfer Assistive Devices Gait Belt,Straight Cane OT- Gait Assessment Comments Gait Ability Comments Pt able to use SPC in the room with good safety. OT- Balance Assessment Sitting Balance and Reactions Static Sitting Balance Ability Normal Dynamic Sitting Balance Ability Good Standing Balance and Reactions Static Standing Balance Ability Good Dynamic Standing Balance Ability Fair M8 OT- IP Objective Assessments Start: 03/11/21 12:05 Freq: Status: Active Protocol: Document 03/11/21 10:20 [facility] (Rec: 03/11/21 12:24 [facility] [id number]) OT-Muscle Tone Assessment Muscle Tone WNL Yes M9 OT- IP Assessment and Plan Start: 03/11/21 12:05 Freq: Status: Active Protocol: Document 03/11/21 10:20 [facility] (Rec: 03/11/21 12:24 [facility] [id number]) OT Summary Assessment and Plan Potential Rehabilitation Potential Good Analytic Complexity at Evaluation Low Summary OT Impairments Pain,Functional Mobility, Toileting,Bathing,Shower Transfers Progress Towards Goals Progressing Toward Goals Assessment Summary Pt low complexity and main barriers are step, dressing and showering and IADl needs. Pt's grandson to stay with the pt to assist for her needs. Goals Dressing Goal Standby Assistance Toileting Goal Independent Bathing Goal Independent Toilet Transfer Goal Standby Assistance Shower Transfer Goal Standby Assistance Days to Meet Goals 26 Frequency of Treatment Frequency Of Treatment Once a Day Treatment Plan OT Treatment Plan ADL Training,Functional Mobility,Patient/Family Education,Discharge Planning Other Treatment Recommendations and Next Shower if still here. Treatment Focus Discharge Recommendations OT Discharge Recommendations Home with Assistance Transportation Needs at Discharge Private Vehicle
--- NOTE | 2021-03-11 13:53 | CM.IDA ---
Initial DCP Assessment Note 75 yo female, POD#1 from cervical fusion by Dr Juarez. Eager to return home this morning. Met w/patient to introduce role. Patient denies needs from this ENGINEER STEAM and has been cleared by PT for return home w/family to assist KANCHAN Kilpatrick Discharge Planning/Care Management CM Discharge Assessment Start: 03/11/21 13:50 Freq: Status: Active Protocol: Document 03/11/21 13:50 [facility] (Rec: 03/11/21 13:53 [facility] [id number]) Discharge Planning Assessment Assigned Reimbursement Counselor KANCHAN Lind DPOA/Assigned Designee Name amber Jacinto and Allan Linaresnes Contact Information [phone], Advance Directives? Yes Advance Directives on File No History Provided By Patient,Medical Record Prior Living Arrangements House Household Members family Type of transporation used prior to Drives own vehicle admit Independent with ADL's Yes: Poor activity tolerance Is patient alert and oriented? Yes Needs Assistance With Home Chores / Shopping Barriers to Discharge No Discharge Plan Home Transportation Arrangement Family, has a son that lives in [place], and her mother as well
== END 2021-03-11 11:29 | disposition home or self-care (01) ==
LOC: OR 10:48 → AC 13:38
PROVIDERS: Family Provider Family Medicine Geriatric Medicine; PCP Family Medicine; Referring Provider Family Medicine; Visit Provider Orthopaedic Surgery Orthopaedic Surgery of the Spine
PROC: (CPT 22551; principal; 2021-03-10 12:45)
DX: M48.02 Spinal stenosis, cervical region (principal); M47.22 Other spondylosis with radiculopathy, cervical region; I10 Essential (primary) hypertension; K21.9 Gastro-esophageal reflux disease without esophagitis; F32.9 Major depressive disorder, single episode, unspecified
CPT/HCPCS: 22551; 22552; 22853 ×2; 72040; 76000; 94760; 97161; 97165; 97530; 97535; C1776; J0171; J0690; J1100; J1170; J2405; J2704; J3010